=== PATIENT | female | born 1940 | race Caucasian/White ===

== ENCOUNTER 2018-02-22 04:37 | Emergency (ER) | payer MEDICARE, SELFPAY ==
--- NOTE | 2018-02-22 04:48 | DI.RAD.S_ITS ---
PROCEDURE: XR RIBS RT MIN 3V W CXR 1V INDICATIONS: fall with severe R sided chest pain, on eliquis TECHNIQUE: 4 views of the right ribs were acquired, along with a single view chest. COMPARISON: [facility], , CHEST 1 VIEW, 05/23/2012, 18:13. FINDINGS: Surgical changes and devices: A device projects over the mid left lung. Bones and chest wall: No fractures or dislocations. No suspicious bony lesions. Overlying soft tissues appear unremarkable. Lateral curvature of the spine and discogenic changes. Lungs and pleura: No pleural effusions or pneumothorax. Lungs appear clear. Mediastinum: Mediastinal contours appear normal. Heart size is normal. IMPRESSION: No acute cardiopulmonary disease. No rib fracture identified. Dictated by: Stan Christianson M.D. on 02/22/2018 at 8:00 Approved by: Stan Christianson M.D. on 02/22/2018 at 8:03
[2018-02-22 04:50] VITALS: BP 135/79; PULSE 82; RESP 20; TEMP 36.4; O2SAT 96; BMI 27.4
[2018-02-22 05:10] LABS: Add Manual Diff / Slide Review NO; Basophils Percent Auto 0.4 % (0-2); Eosinophils Percent Auto 1.8 % (2-4); Hematocrit 39.9 % (36-46); Hemoglobin 13.3 g/dL (12.0-16.0); Lymphocytes Percent Auto 13.6 % (25-40); Mean Corpuscular HGB Conc 33.4 % (30-36); Mean Corpuscular Hemoglobin 29.2 PG (26-34); Mean Corpuscular Volume 87.5 fL (80-100); Monocytes Percent Auto 8.2 % (3-14); Neutrophils Absolute Auto 6800 /uL (3000-5900); Platelet Count 236 X10^3/uL (150-400); Red Blood Cell Count 4.56 X10^6/uL (4.0-5.2); Red Cell Distribution Width 13.9 % (11.6-14.8); White Blood Cell Count 8.9 X10^3/uL (4.5-11.0)
[2018-02-22 05:17] LABS: BUN Creatinine Ratio 23.3 (6-22); Blood Urea Nitrogen 21 mg/dL (7-17); Calcium 9.2 mg/dL (8.4-10.2); Carbon Dioxide 27 mmol/L (22-32); Chloride 101 mmol/L (98-107); Estimated Glomerular Filt Rate > 60.0 mL/min (>60); Glucose 111 mg/dL (80-110); HEMOLYSIS < 15 (0-50); Sodium 140 mmol/L (137-145)
--- NOTE | 2018-02-22 05:48 | ED.FALL ---
HPI - Fall General Chief Complaint: Fall Stated Complaint: hard to breath, pain back/chest fall 2 days ago Time Seen by Provider: 02/22/18 04:40 Source: patient and family Mode of arrival: ambulatory Limitations: no limitations History of Present Illness HPI Narrative: 77-year-old daily smoker presents to the emergency department with her sister and a chief complaint of some right lateral rib pain after a fall. morning the patient was at home when she tripped over her dog and landed on her right side on the ground. She denies hitting her head and has no head, neck or back pain. 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 She denies any shortness of breath nor cough or hemoptysis. She is not dizzy nor weak or lightheaded. Her pain is worse with motion and improves with rest. She takes Eliquis for AFib. complaint: fall Onset (ago): day(s) Fall from: standing Fall witnessed: no Place fall occurred: home Loss of consciousness: none Prolonged down time: no Symptoms prior to fall: none Context: tripped/slipped Location of injury: chest Severity: moderate Quality: sharp Associated symptoms (after fall): chest pain Related Data Home Medications Medication Instructions Recorded Confirmed lansoprazole 15 mg PO QDAY #0 08/07/16 magnesium oxide #0 08/30/16 potassium chloride 8 meq PO QDAY #0 08/30/16 Previous Rx's Medication Instructions Recorded apixaban [Eliquis] 5 mg PO BID #180 tab 10/30/16 diltiazem HCl 360 mg PO QDAY #90 cap 02/05/17 hydrocodone-acetaminophen 1 tab PO Q4-6H PRN #14 tab 02/22/18 Allergies Allergy/AdvReac Type Severity Reaction Status Date / Time Penicillins Allergy Mild RASH Verified 02/22/18 04:54 ciprofloxacin AdvReac Mild FEVER Unverified 08/06/17 12:50 hydromorphone AdvReac Mild VOMITING Unverified 08/06/17 12:50 warfarin AdvReac Mild FEVER Verified 02/22/18 04:54 Declines blood Transfusion AdvReac Unknown Worship Uncoded 08/06/17 12:50 Grounds Review of Systems Review of Systems All systems reviewed & are unremarkable except as noted in HPI and below Constitutional Denies chills, Denies fever(s), Denies lethargy and Denies weakness Eyes Denies change in vision, Denies eye discharge, Denies irritation and Denies loss of vision ENT Ears, Nose, Mouth, and Throat: Denies change in voice, Denies neck pain and Denies sore throat Cardiovascular Reports chest pain, Denies irregular heart rhythm, Denies lightheadedness, Denies palpitations, Denies dyspnea, Denies dyspnea on exertion and Denies orthopnea Respiratory Denies cough, Reports pain on inspiration, Denies dyspnea, Denies dyspnea on exertion and Denies wheezing Gastrointestinal Gastrointestinal: Denies abdominal pain, Denies change in bowel habits, Denies diarrhea, Denies nausea and Denies vomiting Genitourinary Denies hematuria, Denies flank pain, Denies urinary incontinence and Denies urinary urgency Musculoskeletal Denies neck pain Integumentary/Breasts Denies pruritus, Denies erythema, Denies rash and Denies wounds Neurologic Denies confusion, Denies loss of vision and Denies weakness Psychiatric Denies anxiety, Denies confusion, Denies depression, Denies homicidal ideation and Denies suicidal ideation Endocrine Denies palpitations Hematologic/Lymphatic Denies easy bruising Allergic/Immunologic Denies wheezing Exam Narrative Exam Narrative: GENERAL: This is a well-nourished, well-developed patient, in mild distress. HEAD: Atraumatic. Normocephalic. No temporal or scalp tenderness. EYES: Pupils equal round and reactive. Extraocular motions intact. No scleral icterus. No injection or drainage. ENT: Nose without bleeding, purulent drainage or septal hematoma. Throat without erythema, tonsillar hypertrophy or exudate. Uvula midline. Airway patent. NECK: Trachea midline. No JVD or lymphadenopathy. Supple, nontender, no meningeal signs. CARDIOVASCULAR: Regular rate and rhythm without murmurs, gallops, or rubs. RESPIRATORY: Clear to auscultation. Breath sounds equal bilaterally. No wheezes, rales, or rhonchi. Sharp pain in the right posterior ribs mid thoracic region and in the corresponding location on her chest at the right lateral edge of her sternum GASTROINTESTINAL: Abdomen soft, non-tender, nondistended. No hepato-splenomegaly, or palpable masses. No guarding. EXTREMITIES: No clubbing, cyanosis, or edema. No joint tenderness, effusion, or edema noted. Patient has full range of motion of the right upper extremity but at the extremes of the range of motion she feels pain at the tender spot in her back and anterior chest. BACK: Nontender without deformity or crepitance. No flank tenderness. NEURO: AOx3. SKIN: No rash or erythema. Initial Vital Signs Initial Vital Signs: Vital Signs Temperature 97.6 F 02/22/18 04:50 Pulse Rate 82 02/22/18 04:50 Respiratory Rate 20 02/22/18 04:50 Blood Pressure 135/79 02/22/18 04:50 Pulse Oximetry 96 02/22/18 04:50 [facility] Surgical History History of cataract removal with insertion of prosthetic lens Social History Smoking Status: Current every day smoker Procedures Orthopedic Splinting/Casting Injury #1: Side: right Upper Extremity Injury Location: shoulder Upper Extremity Immobilizer: sling/shoulder immobilizer Additional Comments: Though the patient's shoulder is not injured we discussed limiting range of motion at her shoulder which helps with her chest and back pain, additionally this will serve as a reminder that she has an injury so she does not over do it, which she admittedly regularly would do Course Orders Ordered: Discontinued Medications Hydrocodone Bitart/Acetaminophen (Vicodin Prepack) 1 bottle MISC SEEINSTR ONE Stop: 02/22/18 05:45 Last Admin: 02/22/18 05:50 Dose: 1 bottle Vital Signs - 8 hr 02/22/18 04:50 Temperature 97.6 F Pulse Rate 82 Respiratory Rate 20 Blood Pressure 135/79 Pulse Oximetry 96 MDM - Fall Medical Records Attestation: I reviewed the patient's medical records. Lab Data Attestation: I reviewed the patient's lab results. Result diagrams: 02/22/18 04:57 02/22/18 04:57 Lab Results 02/22/18 02/22/18 Range/Units 04:57 04:57 WBC 8.9 (4.5-11.0) X10^3/uL RBC 4.56 (4.0-5.2) X10^6/uL Hgb 13.3 (12.0-16.0) g/dL Hct 39.9 (36-46) % MCV 87.5 (80-100) fL MCH 29.2 (26-34) PG MCHC 33.4 (30-36) % RDW 13.9 (11.6-14.8) % Plt Count 236 (150-400) X10^3/uL Neut % (Auto) 76.0 H (50-75) % Lymph % (Auto) 13.6 L (25-40) % Ripley % (Auto) 8.2 (3-14) % Eos % (Auto) 1.8 L (2-4) % Baso % (Auto) 0.4 (0-2) % Neut # (Auto) 6800 H (8972-0056) /uL Sodium 140 (137-145) mmol/L Potassium 4.0 (3.4-5.1) mmol/L Chloride 101 (98-107) mmol/L Carbon Dioxide 27 (22-32) mmol/L BUN 21 H (7-17) mg/dL Creatinine 0.90 (0.52-1.04) mg/dL Estimated GFR > 60.0 (>60) mL/min BUN/Creatinine Ratio 23.3 H (6-22) Glucose 111 H (80-110) mg/dL Calcium 9.2 (8.4-10.2) mg/dL Imaging Data Chest x-ray: Attestation: I personally reviewed and interpreted this imaging study as follows: My impression: Posterior lateral minimally displaced rib fracture, no pneumo MDM Narrative Medical decision making narrative: I had a lengthy discussion with this patient and her sister at the bedside. She has stable vital signs and sharp reproducible pain on exam and with deep inspiration. The patient is on Eliquis and we discussed the risk of hematoma after a fall. Given stable vital signs and blood work patient refused CAT scan at this point time despite a discussion of risks and benefits. I support this decision and she has a firm understanding of return precautions which she understands and is able to verbalize back to me which include increasing pain, shortness of breath, hemoptysis, dizziness, weakness, lightheadedness. Her sister, whom she lives with his a nurse and supports this decision. Discharge Plan Departure Patient Disposition: Home Clinical Impression: Closed rib fracture Discharge Date/Time: 02/22/18 06:10 Interventions: ED Discharge Assessment Last Done: 02/22/18 06:09 Instructions: DI for Rib Fracture Activity Restrictions/Additional Instructions: *You have been diagnosed with [ right-sided rib fracture] *What to do: *Take medications as directed *Follow up with your primary care provider in 2-3 days, call for an appointment. Let them know you were seen in the Emergency Department and that we ask that you be seen in follow up *Return to ER if you should have any new, worsening or concerning symptoms, such as [increasing pain, shortness of breath, bloody sputum, dizziness, weakness, lightheadedness, or other bothersome symptoms ] Prescriptions: New hydrocodone-acetaminophen 5-325 mg tablet 1 tab PO Q4-6H PRN (Reason: pain) Qty: 14 RF: 0 No Action lansoprazole 15 MG capsule,delayed release(DR/EC) 15 mg PO QDAY Qty: 0 RF: 0 magnesium oxide 400 MG capsule Qty: 0 RF: 0 potassium chloride 8 MEQ capsule, extended release 8 meq PO QDAY Qty: 0 RF: 0 apixaban [Eliquis] 5 MG tablet 5 mg PO BID Qty: 180 RF: 3 diltiazem HCl 360 MG capsule,extended release 24 hr 360 mg PO QDAY Qty: 90 RF: 3 Referrals: René Boyer MD [Primary Care Provider] -
[2018-02-22] MEDS: HYDROCODONE/ACET 5/325 PREPACK 1 BOTTLE MISC (05:50)
[2018-02-22 06:09] VITALS: BP 135/94; PULSE 71; RESP 16; O2SAT 94
== END 2018-02-22 06:10 | disposition home or self-care (01) ==
PROVIDERS: Emergency Provider Emergency Medicine; Family Provider Family Medicine; PCP Family Medicine
DX: S22.31XA Fracture of one rib, right side, initial encounter for closed fracture (principal); W01.0XXA Fall on same level from slipping, tripping and stumbling without subsequent striking against object, initial encounter
CPT/HCPCS: 36591; 71101; 80048; 85025; 93005; 93010; 99282; 99285

== ENCOUNTER 2018-03-04 07:59 | Day surgery (SDC) | payer MEDICARE, SELFPAY ==
--- NOTE | 2018-03-02 09:09 | P.OP_ITS ---
Operative Date/Time/Diagnoses Date of procedure: 03/04/18 Time of procedure: 09:00 Procedure & Clinicians Procedure: Date of service: March 04, 2018 Preoperative diagnoses: 1. Right nuclear sclerotic Cataract 2. Recent fall without rib fracture,stable. 3. Atrial fibrillation with use of Eliquis Postoperative diagnoses: 1. Cataract removed with phacoemulsification and placement of posterior chamber intraocular lens implant. Procedure: Phacoemulsification with posterior chamber intraocular lens implant Surgeon: Rody Pink MD Complications:none Specimen: None Implant:ZCBOO+19.0 Blood loss: None Anesthesia: Retrobulbar with monitored standby Anesthesiologist: Portia Cameron M.D. Description of procedure: Patient is a female year old with decreased vision due to cataract which is affecting activities of daily living. She wants surgery to improve vision. 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 She was taken to the operating room and given IV sedation. A retrobulbar block insert consisting of 6 cc of 2% xylocaine without epinephrine mixed half and half with 0.5% Marcaine with 1 cc of hyaluronidase added is placed between the medial and lateral 1/3 of the inferior orbital rim. Lid akinesia is obtain with 1% xylocaine with epinephrine infiltrated along the lid margin. The eye is manually massaged for 30 sec, prepped using Betadine solution, and draped in the usual sterile fashion. Temporal approach was made, a 1 mm side-port incision was made at the 7:30 position. Phenylephrine 1.5% mixed with 1% xylocaine 0.2 cc was placed into the anterior chamber. Viscoat followed by Tanika was then placed. A 2.6 mm clear incision with a 2.6 mm blade was placed at the 170 degree meridian. A 360 degree capsulorrhexis style capsulotomy was then performed with a cystitome needle on a Healon. Hydrodelineation and hydrodissection were performed. The phacoemulsification unit is introduced, and sculpting notice used to groove the central lens. It is then removed in chopping mode. Epi nucleus is removed with epinuclear mode and irrigation aspiration was used to remove the peripheral cortex. The posterior capsule is polished. The intraocular lens is selected, inspected, power confirmed, and placed in the posterior chamber. The pupil was constricted. The wound was stromally hydrated and tested for leaks, there was none and it was left sutureless. Vigamox 0.1 cc was placed into the anterior chamber. Kenalog 0.2 cc was placed in the superior subconjunctival space. A drop of antibiotic and was placed and the eye was patched and shielded. The patient was stable and returned to the recovery room in excellent condition. Dictated by: Rody Pink MD Copy to: [facility] Same procedure as scheduled: Yes
--- NOTE | 2018-03-02 09:10 | PM.PREOP ---
Pre-operative Note Interval Note Pre-op Check: Yes History & Physical Reviewed by Physician Changes: No
[2018-03-04] MEDS: PROPARACAINE 0.5% OPHTH SOL 2 DROPS EYE-OP (08:10)
[2018-03-04] MEDS: CATARACT EYE COMPOUND (10 DROPS/SYRINGE) 3 DROPS EYE-OP (08:29)
[2018-03-04 08:33] VITALS: BP 154/91; PULSE 90; RESP 16; TEMP 36.2; O2SAT 99
[2018-03-04] MEDS: BALANCED SALT IRRIG SOLN NO.2 15 ML IRRIG.SOLN IRR (09:10)
[2018-03-04] MEDS: CARBACHOL 1.5 ML VIAL INJ (09:11)
[2018-03-04] MEDS: HYALURONATE SODIUM 10 MG/ML SYRINGE INJ (09:12)
[2018-03-04] MEDS: CHONDROIDTIN/SOD HYALURONATE 1.05 ML SYRINGE INTRAOCULA (09:12)
[2018-03-04] MEDS: MOXIFLOXACIN OPHTH DROPS 3 ML BOTTLE 2 DROPS INJ (09:13)
[2018-03-04] MEDS: LIDOCAINE 1% W/EPI INJ 20 ML INJ (09:13)
[2018-03-04] MEDS: OFLOXACIN 0.3% OPHTH 5 ML 2 DROPS EYE-RIGHT (09:14)
[2018-03-04] MEDS: NEOMYCIN/POLY/DEX OPHTH OINT 1 APPLIC EYE-RIGHT (09:14)
[2018-03-04] MEDS: TRIAMCINOLONE 50 MG/5 ML VIAL INJ (09:15)
[2018-03-04] MEDS: PHENYLEPHRINE/LIDOCAINE VIAL (OR) 0.2 ML EYE-OP (09:15)
[2018-03-04] MEDS: LIDOCAINE 2% 4 ML, BUPIVACAINE 0.5% (PF) 4 ML, HYALURONIDASE 150 UNIT INJ (09:16)
[2018-03-04] MEDS: BALANCED SALT IRRIG SOLN NO.2 500 ML, EPINEPHrine 1 MG IRR (09:17)
[2018-03-04 09:38] VITALS: BP 153/95; PULSE 76; RESP 16; TEMP 36.2; O2SAT 96
== END 2018-03-04 09:53 | disposition home or self-care (01) ==
LOC: OR 08:01
PROVIDERS: Family Provider Family Medicine; PCP Family Medicine; Visit Provider Ophthalmology
DX: H25.11 Age-related nuclear cataract, right eye (principal); I48.91 Unspecified atrial fibrillation
CPT/HCPCS: J0171; J2250; J2704; J3010; J3301; J3470

== ENCOUNTER → 2018-08-20 09:46 | Outpatient (CLI) | payer MEDICARE, SELFPAY ==
[2018-08-20 10:26] LABS: Add Manual Diff / Slide Review NO; Basophils Absolute Auto 0 /uL (0-100); Basophils Percent Auto 0.4 % (0-2); Eosinophils Absolute Auto 200 /uL (0-450); Eosinophils Percent Auto 2.8 % (2-4); Hematocrit 40.5 % (36-46); Hemoglobin 13.6 g/dL (12.0-16.0); Lymphocytes Absolute Auto 900 /uL (1100-4500); Lymphocytes Percent Auto 12.1 % (25-40); Mean Corpuscular HGB Conc 33.6 % (30-36); Mean Corpuscular Hemoglobin 29.2 PG (26-34); Mean Corpuscular Volume 86.8 fL (80-100); Monocytes Absolute Auto 700 /uL (0-900); Monocytes Percent Auto 9.2 % (3-14); Neutrophils Absolute Auto 5700 /uL (1500-7000); Neutrophils Percent Auto 75.5 % (50-75); Platelet Count 241 X10^3/uL (150-400); Red Blood Cell Count 4.66 X10^6/uL (4.0-5.2); Red Cell Distribution Width 13.5 % (11.6-14.8); White Blood Cell Count 7.5 X10^3/uL (4.5-11.0)
[2018-08-20 11:03] LABS: Alanine Aminotransferase 20 IU/L (9-52); Albumin 4.3 g/dL (3.5-5.0); Albumin Globulin Ratio 1.6 (1.0-2.8); Alkaline Phosphatase 66 U/L (38-126); Aspartate Aminotransferase 25 IU/L (14-36); BUN Creatinine Ratio 25.6 (6-22); Bilirubin Total 0.5 mg/dL (0.2-1.3); Blood Urea Nitrogen 23 mg/dL (7-17); Calcium 9.5 mg/dL (8.4-10.2); Carbon Dioxide 30 mmol/L (22-32); Chloride 101 mmol/L (98-107); Estimated Glomerular Filt Rate > 60.0 mL/min (>60); Globulin 2.7 g/dL (1.7-4.1); Glucose 96 mg/dL (80-110); HEMOLYSIS < 15 (0-50); Potassium 4.1 mmol/L (3.4-5.1); Sodium 140 mmol/L (137-145)
[2018-08-20 11:31] LABS: Free T4, Direct Thyroxine 1.21 ng/dL (0.78-2.19)
[2018-08-20 11:45] LABS: Thyroid Stimulating Hormone 2.18 uIU/mL (0.47-4.68)
== END ==
PROVIDERS: Family Provider Family Medicine; PCP Family Medicine; Visit Provider Internal Medicine Cardiovascular Disease
DX: I48.91 Unspecified atrial fibrillation (principal); I48.2 Chronic atrial fibrillation
CPT/HCPCS: 36415; 80053; 84439; 84443; 85025

== ENCOUNTER → 2019-05-04 09:45 | Outpatient (CLI) | payer MEDICARE, SELFPAY ==
[2019-05-04 10:55] LABS: B Type Natriuretic Peptide 134 (<100)
[2019-05-04 11:08] LABS: Blood Urea Nitrogen 24 mg/dL (7-17); Calcium 9.9 mg/dL (8.4-10.2); Carbon Dioxide 31 mmol/L (22-32); Chloride 98 mmol/L (98-107); Estimated Glomerular Filt Rate 53.3 mL/min (>60); Glucose 93 mg/dL (80-110); HEMOLYSIS < 15 (0-50); Magnesium 2.1 mg/dL (1.6-2.3); Potassium 4.2 mmol/L (3.4-5.1); Sodium 138 mmol/L (137-145)
== END ==
PROVIDERS: Family Provider Family Medicine; PCP Family Medicine; Visit Provider Internal Medicine Cardiovascular Disease
DX: R06.02 Shortness of breath (principal); I48.21 Permanent atrial fibrillation; I10 Essential (primary) hypertension
CPT/HCPCS: 36415; 80048; 83735; 83880

== ENCOUNTER → 2019-10-21 13:48 | Outpatient (CLI) | payer MEDICARE, SELFPAY ==
--- NOTE | 2019-10-22 13:15 | DI.ECHO.S_ITS ---
Echocardiogram Report + + :Name: CLARA SUN Study Date: 10/21/2019 Height: 64 in : :[facility] Exam Location: [facility] Weight: 157 lb : : Gender: Female BSA: 1.8 m2 : :: 1940 Age: 78 yrs BP: 143/93 mmHg: :Reason For Study: SOB : : Performed By: Lindsay Page : :Referring: MORAIMA INTERIANO : + + Interpretation Summary The left ventricle is normal in size. Left ventricular ejection fraction is estimated to be 70 +/- 5%. The right ventricle is mildly dilated. The right ventricular systolic function is normal. There is mild to moderate mitral regurgitation. Compared to the prior echo study, there has been no change in the severity of mitral regurgitation. There is mild tricuspid regurgitation. Compared to the prior echo exam, there has been a decrease in TR severity. The ascending aorta is mild-moderately enlarged. There has been no significant change since the previous study. Procedure: A two-dimensional transthoracic echocardiogram with color flow and Doppler was performed. The study quality was technically adequate. Comparison is made with the echocardiogram of 08/16/2016. The heart rate ranged between 75-90 bpm during the study. The patient was in atrial fibrillation with controlled ventricular rate during the exam. Left Ventricle: The left ventricle is normal in size. Left ventricular wall thickness is mildly increased. Proximal septal thickening is noted. There is no echo evidence for significant left ventricular outflow tract obstruction. There is no thrombus. The left ventricle is mildly hyperdynamic. Left ventricular ejection fraction is estimated to be 70 +/- 5%. There are no focal wall motion abnormalities. E/E' med: 14.4. Right Ventricle: The right ventricle is mildly dilated. The right ventricular systolic function is normal. Atria: Both atria are severely dilated. Both atria have mildly increased in size since the prior echo exam. The right atrium has mildly increased in size since the prior echo exam. There is no Doppler evidence for an interatrial shunt. Mitral Valve: The mitral valve leaflets appear mildly thickened, but open well. There is mild mitral annular calcification. There is mild to moderate mitral regurgitation. Compared to the prior echo study, there has been no change in the severity of mitral regurgitation. Aortic Valve: The aortic valve is trileaflet. The aortic valve is slightly calcified. There is no aortic valve stenosis. There is trace aortic regurgitation. Tricuspid Valve: The tricuspid valve is normal. There is mild tricuspid regurgitation. The right ventricular systolic pressure is estimated to be at least 32 mmHg based on an estimated right atrial pressure of 3 mm Hg. Compared to the prior echo exam, there has been a decrease in TR severity. Pulmonic Valve: The pulmonic valve is not well seen, but is grossly normal. There is trace pulmonic regurgitation. Great Vessels: The aortic root is normal size. The ascending aorta is mildmoderately enlarged. There has been no significant change since the previous study. The pulmonary artery is normal size. The IVC is of normal diameter and collapses greater than 50% with a sniff. This suggests a low right atrial pressure of 3 mm Hg. Pericardium/ Pleura There is no pericardial effusion. There is no pleural effusion. MMode/2D Measurements & Calculations LVIDd: 4.0 cm LVOT diam: 2.0 cm LVIDs: 1.8 cm Ao root diam: 3.4 cm FS: 54.4 % asc Aorta Diam: 4.2 cm EPSS: 0.10 cm IVSd: 1.1 cm LVPWd: 1.0 cm LV metzger. diameter/BSA (cm/m^2): 2.3 LV sys. diameter/BSA (cm/m^2): 1.0 LA A2 area: 36.1 cm2 RA long axis: 6.9 cm LA A4 area: 33.9 cm2 RA area: 28.7 cm2 LA length (vol): 6.7 cm RA vol: 101.6 ml LA vol: 154.6 ml RA : 57.7 ml/m2 LA vol index: 87.7 ml/m2 IVC diam: 1.4 cm RVD1 (basal): 4.3 cm RVD2 (mid): 3.8 cm Doppler Measurements & Calculations Ao V2 max: 202.7 cm/sec LVOT Max Alejandro: 127.5 cm/sec Ao V2 mean: 136.2 cm/sec LV V1 max P.5 mmHg Ao max P.5 mmHg LV V1 VTI: 20.9 cm Ao mean P.3 mmHg DANAE(I,D): 1.8 cm2 Ao V2 VTI: 38.5 cm DANAE(V,D): 2.1 cm2 sev ratio: 0.54 DANAE indexed to BSA (cm^2/m^2): 1.0 MV E max alejandro: 131.3 cm/sec TR max alejandro: 269.9 cm/sec MV A max alejandro: 30.7 cm/sec TR max P.2 mmHg MV E/A: 4.3 PA V2 max: 93.1 cm/sec Med Peak E' Alejandro: 9.1 cm/sec PA V2 mean: 64.9 cm/sec E/E' med: 14.4 PA mean P.8 mmHg Lat Peak E' Alejandro: 13.4 cm/sec PA Accel Time: 0.07 sec E/E' lat: 9.8 E/e' average: 12.1 MV P1/2t: 46.3 msec MV P1/2t max alejandro: 125.2 cm/sec SV(LVOT): 68.2 ml MVA(P1/2t): 4.7 cm2 Reading Physician:03:48 PM
== END ==
PROVIDERS: Family Provider Family Medicine; PCP Family Medicine; Referring Provider Internal Medicine Cardiovascular Disease; Visit Provider Internal Medicine Cardiovascular Disease
DX: I08.1 Rheumatic disorders of both mitral and tricuspid valves (principal); I77.89 Other specified disorders of arteries and arterioles; R06.02 Shortness of breath; I48.21 Permanent atrial fibrillation
CPT/HCPCS: 93306

== ENCOUNTER → 2019-11-17 08:50 | Outpatient (CLI) | payer MEDICARE, SELFPAY ==
[2019-11-17 10:43] LABS: BUN Creatinine Ratio 20.4 (6-22); Blood Urea Nitrogen 19 mg/dL (7-17); Calcium 9.8 mg/dL (8.4-10.2); Carbon Dioxide 28 mmol/L (22-32); Chloride 102 mmol/L (98-107); Cholesterol 179 mg/dL (140-199); Glucose 94 mg/dL (80-110); HDL Cholesterol 52 mg/dL (40-60); HEMOLYSIS < 15 (0-50); LDL Cholesterol Calculated 101 mg/dL (<100); Magnesium 2.3 mg/dL (1.6-2.3); Potassium 4.1 mmol/L (3.4-5.1); Sodium 138 mmol/L (137-145); Triglycerides 130 mg/dL (35-150)
[2019-11-17 10:50] LABS: NT-proBNP (BNP-Adult 18+) 628 pg/mL (<450)
== END ==
PROVIDERS: Family Provider Family Medicine; PCP Family Medicine; Referring Provider Internal Medicine Cardiovascular Disease; Visit Provider Internal Medicine Cardiovascular Disease
DX: I48.21 Permanent atrial fibrillation (principal); I10 Essential (primary) hypertension; R06.02 Shortness of breath
CPT/HCPCS: 36415; 80048; 80061; 83735; 83880

== ENCOUNTER → 2020-01-05 12:59 | Outpatient (CLI) | payer MEDICARE, SELFPAY ==
[2020-01-05 14:20] LABS: Blood Urea Nitrogen 23 mg/dL (7-17); Calcium 9.8 mg/dL (8.4-10.2); Carbon Dioxide 31 mmol/L (22-32); Chloride 101 mmol/L (98-107); Estimated Glomerular Filt Rate 53.2 mL/min (>60); Glucose 106 mg/dL (80-110); HEMOLYSIS < 15 (0-50); Potassium 4.9 mmol/L (3.4-5.1); Sodium 138 mmol/L (137-145)
== END ==
PROVIDERS: Family Provider Family Medicine; PCP Family Medicine; Referring Provider Internal Medicine Cardiovascular Disease; Visit Provider Internal Medicine Cardiovascular Disease
DX: I48.21 Permanent atrial fibrillation (principal); G47.33 Obstructive sleep apnea (adult) (pediatric); R53.83 Other fatigue; R06.83 Snoring
CPT/HCPCS: 36415; 80048; 99213

== ENCOUNTER 2020-04-07 18:20 | Inpatient (IN) | payer MEDICARE, SELFPAY ==
--- NOTE | 2020-04-07 | DI.RAD.S_ITS ---
PROCEDURE: XR CHEST 1V INDICATIONS: FALL TECHNIQUE: One view of the chest was acquired. COMPARISON: [facility], , CHEST 1 VIEW, 05/23/2012, 18:13. FINDINGS: Surgical changes and devices: None. Lungs and pleura: Lungs are clear. Minimal left basilar scarring. No pleural effusions or pneumothorax. Mediastinum: Mediastinal contours appear normal. Heart size is normal. Bones and chest wall: No suspicious bony lesions. Overlying soft tissues appear unremarkable. IMPRESSION: No evidence acute pulmonary process. Dictated by: Brad Delgado M.D. on 04/07/2020 at 19:32 Approved by: Brad Delgado M.D. on 04/07/2020 at 19:32
[2020-04-07 18:30] VITALS: BP 153/78; PULSE 84; RESP 18; TEMP 36.7; O2SAT 93; BMI 27.4
--- NOTE | 2020-04-07 18:39 | DI.RAD.S_ITS ---
PROCEDURE: XR FEMUR LT MIN 2V INDICATIONS: fall/pain TECHNIQUE: 4 views of the femur were acquired. COMPARISON: [facility], CR, XR HIP W PEL IF DONE LT 2V, 04/07/2020, 19:10. FINDINGS: Bones: There is a moderately impacted subcapital fracture of the left femoral neck. No evidence of distal femoral fracture. Soft tissues: No suspicious soft tissue calcifications or masses. IMPRESSION: 1. Impacted left femoral neck fracture. Dictated by: Eduardo Hermosillo M.D. on 04/07/2020 at 19:40 Approved by: Eduardo Hermosillo M.D. on 04/07/2020 at 19:41
--- NOTE | 2020-04-07 18:39 | DI.RAD.S_ITS ---
PROCEDURE: XR HIP W PEL IF DONE LT 2V INDICATIONS: fall/pain TECHNIQUE: AP pelvis with lateral view of the left hip. COMPARISON: [facility], , HIP 2V RIGHT, 05/24/2012, 11:09. FINDINGS: Bones: There is a moderately impacted subcapital left femoral neck fracture. Pelvic ring appears intact. A right hip prosthesis is redemonstrated. No suspicious bony lesions. Soft tissues: The visualized bowel gas pattern is normal. No suspicious soft tissue calcifications. IMPRESSION: 1. Impacted left femoral neck fracture Dictated by: Eduardo Hermosillo M.D. on 04/07/2020 at 19:43 Approved by: Eduardo Hermosillo M.D. on 04/07/2020 at 19:44
--- NOTE | 2020-04-07 18:43 | ED_ITS ---
HPI - Extremity Injury (Lower) General Chief Complaint: Extremity Injury, Lower Stated Complaint: at home fall Time Seen by Provider: 04/07/20 18:29 Source: patient and EMS Mode of arrival: EMS Limitations: no limitations History of Present Illness HPI Narrative: Patient complains of left hip pain. Was walking down her driveway and slipped between the edge of the grass and driveway. Landed on her left hip and rolled down. Denies denies any any other injuries. No head or neck injury. No other extremity pain or injury. No trunk abdomen back or chest pain or injury. Remains awake. No loss of consciousness. Patient is on Eliquis for atrial fibrillation. Patient had right hip surgery due to fracture and fall 8 years ago here. Has been doing well. Is not allergic to morphine. Patient states has had that in the past without any difficulty. Last meal 2 hours ago Related Data Home Medications Medication Instructions Recorded Confirmed lansoprazole 15 mg PO QDAY #0 08/07/16 04/07/20 [id number] 1 tab PO DAILY 04/07/20 04/07/20 [Calcium Citrate + D with Mag] cranberry conc-ascorbic acid cap PO PRN PRN 04/07/20 [Cranberry Plus Vitamin C] valsartan 80 mg PO DAILY 04/07/20 04/07/20 Previous Rx's Medication Instructions Recorded Eliquis 5 mg PO BID #180 tab 10/30/16 diltiazem HCl 360 mg PO QDAY #90 cap 02/05/17 Allergies Allergy/AdvReac Type Severity Reaction Status Date / Time Penicillins Allergy Mild RASH Verified 01/05/20 20:59 ciprofloxacin AdvReac Mild FEVER Verified 04/07/20 22:00 hydromorphone AdvReac Mild VOMITING Verified 04/07/20 22:00 warfarin AdvReac Mild FEVER Verified 01/05/20 20:59 Declines blood Transfusion AdvReac Unknown Mandaen Uncoded 01/05/20 20:59 Grounds Review of Systems Review of Systems Narrative: GENERAL: Denies chills, fatigue, malaise, fever, sweats. HEENT: Denies sinus pain, ear pain, sore throat, difficulty swallowing RESPIRATORY: Denies dyspnea, cough CARDIOVASCULAR: Denies chest pain, palpitations, edema, GASTROINTESTINAL: Denies nausea, vomiting, abdominal pain, diarrhea, constipation, melena. : Denies dysuria, frequency, hematuria MUSCULOSKELETAL: denies muscle or bony pain SKIN: Denies rash, skin lesions NEUROLOGIC: Denies weakness, headache, numbness, change in speech, confusion PSYCHIATRIC: No SI or HI or hallucinations ROS Unobtainable: All systems reviewed & are unremarkable except as noted in HPI and below Patient History Medical History Fatigue GERD (gastroesophageal reflux disease) Obstructive sleep apnea syndrome (~10/2019) Snoring Surgical History History of cataract removal with insertion of prosthetic lens History of right hip replacement Family History Mother Restless legs syndrome (RLS) Hypertension Heart disease Father Hypertension Heart disease Family/Other Restless legs syndrome (RLS) Obesity Hypertension Family/Other Snoring Obstructive sleep apnea Depression Alcohol abuse Substance abuse Anxiety Bipolar disorder Family/Other Obesity Social History marital status: number of children: 5 household members: family lives independently: Yes caregiver/support person: No housing: house Smoking Status: Never smoker alcohol intake: current substance use type: does not use Smoking Status: Never smoker alcohol intake frequency: a few times a month Substance Use Type: does not use Exam Narrative Exam Narrative: GENERAL: patient appears stated age. Well-nourished, well- developed patient, in no distress, not toxic not dyspneic HEAD: Normocephalic. EYES: Pupils equal round and reactive. No scleral icterus. No injection no discharge ENT: Mucous membranes moist. No drooling no tongue elevation no trismus no malocclusion NECK: Trachea midline. Non tender CARDIOVASCULAR: Regular rate and rhythm without murmurs, gallops, or rubs. RESPIRATORY: Clear to auscultation. Breath sounds equal bilaterally. No wheezes, rales, or rhonchi. GASTROINTESTINAL: Abdomen soft, non-tender, nondistended. EXTREMITIES: Examination left lower extremity left leg is shortened and externally rotated. Leg is warm soft and pink strong pedal pulse. Foot warm soft and pink. Wiggles toes. Nontender ankle and knee. Point tenderness to the left hip. Limited range of motion due to pain. Examination left wrist shows tenderness to distal radius. Has limited range of motion with pain. Strong airport engineer in radial pulse with light touch intact to fingers and thumb. Skin is intact. Remaining extremities nontender. No gross deformities of the other extremities. BACK: Nontender without deformity or crepitance. No flank tenderness. NEURO: AOx4. SKIN: Warm and dry PSYCH: Not anxious, is cooperative Initial Vital Signs Initial Vital Signs: Vital Signs Temperature 98.0 F 04/07/20 18:30 Pulse Rate 84 04/07/20 18:30 Respiratory Rate 18 04/07/20 18:30 Blood Pressure 153/78 H 04/07/20 18:30 Pulse Oximetry 93 04/07/20 18:30 Procedures Orthopedic Splinting/Casting Injury #1: Side: left Upper Extremity Injury Location: wrist Upper Extremity Immobilizer: volar splint Post splinting neuro exam: intact Post splinting vascular exam: intact Placed by: Nursing Course Course Course Narrative: Spoke with patient will need admit for surgical repair of the hip and possibly the wrist Decision to Admit Date: 04/07/20 Decision to Admit time: 19:42 Orders Ordered: ED Orders 04/07/20 18:39 XR femur LT min 2V Stat XR hip w pel if done LT 2V Stat 04/07/20 19:08 XR wrist LT min 3V Stat 04/07/20 19:46 Complete Blood Count AUTO DIFF Stat Comprehensive Metabolic Panel Stat Partial Thromboplastin Time Stat Prothrombin Time INR Stat 04/07/20 20:00 COVID19 Stat Acetaminophen (Acetaminophen 325 Mg Tablet) 650 mg PO Q6HR PRN PRN Reason: Fever/Mild Pain (1-3) Diltiazem HCl (Diltiazem Cd 180 Mg Cap) 360 mg PO DAILY [facility] Last Admin: 04/07/20 23:42 Dose: 360 mg Documented by: TARUN Sodium Chloride (Normal Saline 0.45%) 1,000 mls @ 100 mls/hr IV CONT [facility] Last Admin: 04/07/20 23:43 Dose: 100 mls/hr Documented by: TARUN Morphine Sulfate (Morphine 2 Mg/Ml Inj) 2 mg IV Q4HR PRN PRN Reason: Pain, Moderate (4-6) Last Admin: 04/07/20 23:43 Dose: 2 mg Documented by: TARUN Naloxone HCl (Naloxone 0.4 Mg/Ml Vial) 0.2 mg IV Q2MIN PRN PRN Reason: Opiate Reversal Ondansetron HCl (Ondansetron 4 Mg/2 Ml Inj) 4 mg IV Q8HR PRN PRN Reason: Nausea And Vomiting Valsartan (Valsartan 80 Mg Tablet) 80 mg PO DAILY [facility] Discontinued Medications Morphine Sulfate (Morphine 4 Mg/Ml Inj) 4 mg IV NOW ONE Stop: 04/07/20 18:40 Last Admin: 04/07/20 18:51 Dose: 4 mg Documented by: MMINOR Ondansetron HCl (Ondansetron 4 Mg/2 Ml Inj) 4 mg IV NOW ONE Stop: 04/07/20 18:40 Last Admin: 04/07/20 18:51 Dose: 4 mg Documented by: MMINOR Reevaluation(s) Reevaluation #1: Pain is controlled. Reviewed results with patient and she understands Time: 19:42 Consultations Consultation #1: Spoke with Dr. Velez, orthopedics. Reviewed the x-rays. Admit to hospitalist and keep NPO after midnight. No CT scan at this time. Time: 19:42 Consultation #2: Spoke with hospitalistElizabeth, admit inpatient monitored bed Time: 20:10 Vital Signs Vital signs: Vital Signs - 8 hr 04/07/20 18:30 Temperature 98.0 F Pulse Rate 84 Respiratory Rate 18 Blood Pressure 153/78 H Pulse Oximetry 93 MDM - Extremity Injury (Lower) Differential Diagnosis Differential diagnosis: Likely fracture of hip Medical Records Attestation: I reviewed the patient's medical records. Lab Data Attestation: I reviewed the patient's lab results. Result diagrams: 04/07/20 19:46 04/07/20 19:46 Labs: Lab Results 04/07/20 04/07/20 04/07/20 Range/Units 19:46 19:46 19:46 WBC 5.6 (4.5-11.0) X10^3/uL RBC 4.10 (4.0-5.2) X10^6/uL Hgb 11.6 L (12.0-16.0) g/dL Hct 35.7 L (36-46) % MCV 87.0 (80-100) fL MCH 28.3 (26-34) PG MCHC 32.5 (30-36) % RDW 13.8 (11.6-14.8) % Plt Count 221 (150-400) X10^3/uL Neut % (Auto) 72.2 (50-75) % Lymph % (Auto) 10.3 L (25-40) % [place] % (Auto) 14.1 H (3-14) % Eos % (Auto) 2.8 (2-4) % Baso % (Auto) 0.6 (0-2) % Neut # (Auto) 4000 (8922-0606) /uL Lymph # (Auto) 600 L (2653-4898) /uL [place] # (Auto) 800 (0-900) /uL Eos # (Auto) 200 (0-450) /uL Baso # (Auto) 0 (0-100) /uL PT 16.2 H (10.1-12.7) SECONDS INR 1.4 H (0.9-1.3) APTT 49 H (26.4-36.2) SECONDS Sodium 136 L (137-145) mmol/L Potassium 4.2 (3.4-5.1) mmol/L Chloride 103 (98-107) mmol/L Carbon Dioxide 31 (22-32) mmol/L BUN 26 H (7-17) mg/dL Creatinine 0.92 (0.52-1.04) mg/dL Estimated GFR 58.6 L (>60) mL/min BUN/Creatinine Ratio 28.3 H (6-22) Glucose 109 (80-110) mg/dL Calcium 9.2 (8.4-10.2) mg/dL Magnesium (1.6-2.3) mg/dL Total Bilirubin 0.4 (0.2-1.3) mg/dL AST 27 (14-36) IU/L ALT 19 (<35) IU/L Alkaline Phosphatase 61 (38-126) U/L Total Protein 6.8 (6.3-8.2) g/dL Albumin 3.9 (3.5-5.0) g/dL Globulin 2.9 (1.7-4.1) g/dL Albumin/Globulin Ratio 1.3 (1.0-2.8) COVID-19 PCR (Negative) 04/07/20 04/07/20 Range/Units 19:46 20:00 WBC (4.5-11.0) X10^3/uL RBC (4.0-5.2) X10^6/uL Hgb (12.0-16.0) g/dL Hct (36-46) % MCV (80-100) fL MCH (26-34) PG MCHC (30-36) % RDW (11.6-14.8) % Plt Count (150-400) X10^3/uL Neut % (Auto) (50-75) % Lymph % (Auto) (25-40) % [place] % (Auto) (3-14) % Eos % (Auto) (2-4) % Baso % (Auto) (0-2) % Neut # (Auto) (4527-9134) /uL Lymph # (Auto) (5463-7580) /uL [place] # (Auto) (0-900) /uL Eos # (Auto) (0-450) /uL Baso # (Auto) (0-100) /uL PT (10.1-12.7) SECONDS INR (0.9-1.3) APTT (26.4-36.2) SECONDS Sodium (137-145) mmol/L Potassium (3.4-5.1) mmol/L Chloride (98-107) mmol/L Carbon Dioxide (22-32) mmol/L BUN (7-17) mg/dL Creatinine (0.52-1.04) mg/dL Estimated GFR (>60) mL/min BUN/Creatinine Ratio (6-22) Glucose (80-110) mg/dL Calcium (8.4-10.2) mg/dL Magnesium 2.3 (1.6-2.3) mg/dL Total Bilirubin (0.2-1.3) mg/dL AST (14-36) IU/L ALT (<35) IU/L Alkaline Phosphatase (38-126) U/L Total Protein (6.3-8.2) g/dL Albumin (3.5-5.0) g/dL Globulin (1.7-4.1) g/dL Albumin/Globulin Ratio (1.0-2.8) COVID-19 PCR Negative (Negative) Imaging Data Extremity x-ray #1: Radiologist's Impression: [address] [id number] ReportSigned Patient: Rody Rodas LMR#: [id number]: 9Acct:[id number]/Sex: 79 / FDate of Service: 04/07/20Lo: EDAccession Number: [id number] Procedure: XR wrist LT min 3V Ordering Provider: Marcos Spear MD PROCEDURE: XR WRIST LT MIN 3V INDICATIONS: fall, swelling and pain TECHNIQUE: 3 views of the wrist were acquired. COMPARISON: None. FINDINGS: Bones: Nondisplaced comminuted distal radius fracture extending to articular surface. Triquetral fracture seen on lateral view. Question nondisplaced scaphoid fracture. No suspicious bony lesions. Soft tissues: No suspicious soft tissue calcifications. IMPRESSION: 1. Nondisplaced comminuted distal radius fracture extending to articular surface. 2. Triquetral fracture. 3. Question nondisplaced scaphoid waist fracture. Comment: Suggest CT wrist to evaluate scaphoid. Dictated by: Brad Delgado M.D. on 04/07/2020 at 19:29 Approved by: Brad Delgado M.D. on 04/07/2020 at 19:31 Chest x-ray: Radiologist's Impression: [address] [id number] ReportSigned Patient: Rody Rodas LMR#: [id number]: 9Acct:[id number]/Sex: 79 / FDate of Service: 04/07/20Loc: EDAccession Number: [id number] Procedure: XR chest 1V Ordering Provider: Marcos Spear MD PROCEDURE: XR CHEST 1V INDICATIONS: FALL TECHNIQUE: One view of the chest was acquired. COMPARISON: [facility], CHEST 1 VIEW, 05/23/2012, 18:13. FINDINGS: Surgical changes and devices: None. Lungs and pleura: Lungs are clear. Minimal left basilar scarring. No pleural effusions or pneumothorax. Mediastinum: Mediastinal contours appear normal. Heart size is normal. Bones and chest wall: No suspicious bony lesions. Overlying soft tissues appear unremarkable. IMPRESSION: No evidence acute pulmonary process. Dictated by: Brad Delgado M.D. on 04/07/2020 at 19:32 Approved by: Brad Delgaod M.D. on 04/07/2020 at 19:32 Extremity x-ray #2: Radiologist's Impression: [address] [id number] ReportSigned Patient: Rody Rodas LMR#: [id number]: 9Acct:[id number]/Sex: 79 / FDate of Service: 04/07/20Loc: EDAccession Number: [id number] Procedure: XR femur LT min 2V Ordering Provider: Marcos Spear MD PROCEDURE: XR FEMUR LT MIN 2V INDICATIONS: fall/pain TECHNIQUE: 4 views of the femur were acquired. COMPARISON: [facility], CR, XR HIP W PEL IF DONE LT 2V, 04/07/2020, 19:10. FINDINGS: Bones: There is a moderately impacted subcapital fracture of the left femoral neck. No evidence of distal femoral fracture. Soft tissues: No suspicious soft tissue calcifications or masses. IMPRESSION: 1. Impacted left femoral neck fracture. Dictated by: Eduardo Hermosillo M.D. on 04/07/2020 at 19:40 Approved by: Eduardo Hermosillo M.D. on 04/07/2020 at 19:41 Extremity x-ray #3: Radiologist's Impression: [address] [id number] ReportSigned Patient: Rody Rodas LMR#: [id number]: 9Acct:[id number]/Sex: 79 / FDate of Service: 04/07/20Loc: EDAccession Number: [id number] Procedure: XR hip w pel if done LT 2V Ordering Provider: Marcos Spear MD PROCEDURE: XR HIP W PEL IF DONE LT 2V INDICATIONS: fall/pain TECHNIQUE: AP pelvis with lateral view of the left hip. COMPARISON: [facility], , HIP 2V RIGHT, 05/24/2012, 11:09. FINDINGS: Bones: There is a moderately impacted subcapital left femoral neck fracture. Pelvic ring appears intact. A right hip prosthesis is redemonstrated. No suspicious bony lesions. Soft tissues: The visualized bowel gas pattern is normal. No suspicious soft tissue calcifications. IMPRESSION: 1. Impacted left femoral neck fracture Dictated by: Eduardo Hermosillo M.D. on 04/07/2020 at 19:43 Approved by: Eduardo Hermosillo M.D. on 04/07/2020 at 19:44 [facility] Narrative Medical decision making narrative: Appropriate for admission. Spoke with Orthopedics as well as hospitalist. Son at bedside and reviewed results with him and patient. Pain is controlled. Discharge Plan Departure Patient Disposition: Admitted As Inpatient Clinical Impression: Fracture of hip Qualifiers: Encounter type: initial encounter Fracture type: closed Laterality: left Qualified Code(s): S72.002A - Fracture of unspecified part of neck of left femur, initial encounter for closed fracture Fracture of wrist, closed Qualifiers: Encounter type: initial encounter Laterality: left Qualified Code(s): S62.102A - Fracture of unspecified carpal bone, left wrist, initial encounter for closed fracture Admit Date/Time: 04/07/20 20:10 Admit Provider: Shellie Christianson
[2020-04-07] MEDS: MORPHINE 4 MG/ML INJ IV (18:51)
[2020-04-07] MEDS: ONDANSETRON 4 MG/2 ML INJ IV (18:51)
--- NOTE | 2020-04-07 19:08 | DI.RAD.S_ITS ---
PROCEDURE: XR WRIST LT MIN 3V INDICATIONS: fall, swelling and pain TECHNIQUE: 3 views of the wrist were acquired. COMPARISON: None. FINDINGS: Bones: Nondisplaced comminuted distal radius fracture extending to articular surface. Triquetral fracture seen on lateral view. Question nondisplaced scaphoid fracture. No suspicious bony lesions. Soft tissues: No suspicious soft tissue calcifications. IMPRESSION: 1. Nondisplaced comminuted distal radius fracture extending to articular surface. 2. Triquetral fracture. 3. Question nondisplaced scaphoid waist fracture. Comment: Suggest CT wrist to evaluate scaphoid. Dictated by: Brad Delgado M.D. on 04/07/2020 at 19:29 Approved by: Brad Delgado M.D. on 04/07/2020 at 19:31
[2020-04-07 19:58] LABS: Add Manual Diff / Slide Review NO; Basophils Absolute Auto 0 /uL (0-100); Basophils Percent Auto 0.6 % (0-2); Eosinophils Absolute Auto 200 /uL (0-450); Eosinophils Percent Auto 2.8 % (2-4); Hematocrit 35.7 % (36-46); Hemoglobin 11.6 g/dL (12.0-16.0); Lymphocytes Absolute Auto 600 /uL (1100-4500); Lymphocytes Percent Auto 10.3 % (25-40); Mean Corpuscular HGB Conc 32.5 % (30-36); Mean Corpuscular Hemoglobin 28.3 PG (26-34); Monocytes Absolute Auto 800 /uL (0-900); Monocytes Percent Auto 14.1 % (3-14); Neutrophils Absolute Auto 4000 /uL (1500-7000); Neutrophils Percent Auto 72.2 % (50-75); Platelet Count 221 X10^3/uL (150-400); Red Cell Distribution Width 13.8 % (11.6-14.8); White Blood Cell Count 5.6 X10^3/uL (4.5-11.0)
[2020-04-07 20:05] LABS: INR 1.4 (0.9-1.3); Prothrombin Time 16.2 SECONDS (10.1-12.7)
[2020-04-07 20:08] LABS: PTT Partial Thromboplastin Tim 49 SECONDS (26.4-36.2)
[2020-04-07 20:10] LABS: Alanine Aminotransferase 19 IU/L (<35); Albumin 3.9 g/dL (3.5-5.0); Albumin Globulin Ratio 1.3 (1.0-2.8); Alkaline Phosphatase 61 U/L (38-126); Aspartate Aminotransferase 27 IU/L (14-36); BUN Creatinine Ratio 28.3 (6-22); Bilirubin Total 0.4 mg/dL (0.2-1.3); Blood Urea Nitrogen 26 mg/dL (7-17); Calcium 9.2 mg/dL (8.4-10.2); Carbon Dioxide 31 mmol/L (22-32); Chloride 103 mmol/L (98-107); Estimated Glomerular Filt Rate 58.6 mL/min (>60); Globulin 2.9 g/dL (1.7-4.1); Glucose 109 mg/dL (80-110); HEMOLYSIS < 15 (0-50); Potassium 4.2 mmol/L (3.4-5.1); Sodium 136 mmol/L (137-145); Total Protein 6.8 g/dL (6.3-8.2)
[2020-04-07 20:43] LABS: COVID19 -Nasal RAPID Negative (Negative)
[2020-04-07 21:25] VITALS: BP 150/116; PULSE 96; RESP 20; TEMP 36.5; O2SAT 98
[2020-04-07 21:36] VITALS: BMI 27.8
[2020-04-07 23:03] LABS: Magnesium 2.3 mg/dL (1.6-2.3)
[2020-04-07] MEDS: dilTIAZem CD 180 MG CAP 360 MG PO (23:42)
[2020-04-07] MEDS: MORPHINE 2 MG/ML INJ IV (23:43)
[2020-04-07] MEDS: SODIUM CHLORIDE 0.45% 1,000 ML 100 ML IV (23:43)
[2020-04-08 00:26] VITALS: BP 162/101; PULSE 102; RESP 16; TEMP 36.6; O2SAT 92
--- NOTE | 2020-04-08 01:33 | PM.HP.1 ---
History of Present Illness History of Present Illness Date Patient Seen: 04/07/20 Time Patient Seen: 23:30 Chief complaint: at home fall Narrative: Rody Rodas is a pleasant 79 y.o. female with atrial fibrillation anticoagulated on eliquis and and essential hypertension was in her usual state of health when she went out to her mail box and tripped in the lawned area next to her driveway. She fell and sustained a fracture to her left hip and left wrist. She denies loosing consciousness, feeling dizzy prior to the fall. She denies hitting her head or having a headache. Denies shortness of breath, chest pain, nausea or vomiting, abdominal pain, dysurea, diarrhea or constipation. She is concerned about being able to return home. She and her younger sister having been living together for 40 years and her sister is currently undering surgery at [facility] for a small bowel obstruction. Xray of the left wrist found: Nondisplaced comminuted distal radius fracture extending to articular surface. Triquetral fracture seen on lateral view. Question nondisplaced scaphoid fracture. Xray of the left hip indicated an impacted left femoral neck fracture. She is afebrile, blood pressure is 162/101, heart rate 102, respiratory rate 16, oxygen saturation of 92% on room air, she weighs 73.5 kg with a BMI of 27.8. She is mildly anemic at 11.6 and 35.7 hemoglobin and hematocrit, PT/INR is 16.2 and 1.4 respectively, CBC is unremarkable, sodium was 136 BUN is 26 and a GFR estimated at 58.6, liver enzymes are within normal limits, and COVID-19 PCR was negative. Patient History Medical History (Updated 04/08/20 @ 01:47 by SILVINA Montgomery) Atrial fibrillation Fatigue GERD (gastroesophageal reflux disease) Obstructive sleep apnea syndrome (~10/2019) Snoring Surgical History History of cataract removal with insertion of prosthetic lens History of right hip replacement Family & Social History Family History Mother Restless legs syndrome (RLS) Hypertension Heart disease Father Hypertension Heart disease Family/Other Restless legs syndrome (RLS) Obesity Hypertension Family/Other Snoring Obstructive sleep apnea Depression Alcohol abuse Substance abuse Anxiety Bipolar disorder Family/Other Obesity Social History: household members family Prior Living Arrangements House lives independently Yes caregiver/support person No Safety & Behavioral: Feels Safe in Current Yes Environment Been Physically Hurt or No Threatened By a Person Suicidal Ideation Description None Tobacco & Substance use: Smoking Status Never smoker alcohol intake current alcohol intake frequency a few times a month Substance Use Type does not use Meds Home Medications and Allergies Home Medications Medication Instructions Recorded Confirmed Type lansoprazole 15 mg PO QDAY #0 08/07/16 04/07/20 History Eliquis 5 mg PO BID #180 tab 10/30/16 04/07/20 Rx diltiazem HCl 360 mg PO QDAY #90 cap 02/05/17 04/07/20 Rx [id number]-[id number] 1 tab PO DAILY 04/07/20 04/07/20 History [Calcium Citrate + D with Mag] cranberry conc-ascorbic acid cap PO PRN PRN 04/07/20 History [Cranberry Plus Vitamin C] valsartan 80 mg PO DAILY 04/07/20 04/07/20 History Allergies Allergy/AdvReac Type Severity Reaction Status Date / Time Penicillins Allergy Mild RASH Verified 01/05/20 20:59 ciprofloxacin AdvReac Mild FEVER Verified 04/07/20 22:00 hydromorphone AdvReac Mild VOMITING Verified 04/07/20 22:00 warfarin AdvReac Mild FEVER Verified 01/05/20 20:59 Declines blood Transfusion AdvReac Unknown Islam Uncoded 01/05/20 20:59 Grounds Review of Systems Review of Systems ROS: Yes All systems reviewed with the patient and are negative except as otherwise documented Exam Vital Signs (past 8 hours): - 04/07/20 18:30 04/07/20 21:25 04/08/20 00:26 Temperature 98.0 F 97.7 F 97.9 F Pulse Rate 84 96 H 102 H Respiratory Rate 18 20 16 Blood Pressure 153/78 H 150/116 H 162/101 H Pulse Oximetry 93 98 92 Oxygen Delivery Method Room Air Oxygen Flow Rate 0 Narrative Exam Narrative: Gen: Alert, oriented, well-developed 79 y.o. female, mildly uncomfortable HEENT: normocephalic, atraumatic, conjunctiva clear, sclera non-icteric, oral mucosa pink and moist Neck: supple, full ROM, no JVD, trachea is midline Resp: Lungs CTA, non-labored breathing CV: RRR, no murmur or rubs Abd: soft, non-tender, normoactive BTs Skin: Appears to have had significant sun exposure through the years, no lesions or rashes, dry and intact Neuro: Alert and oriented X 4 w/no focal deficits. Speech clear and coherent. Extremities: Left wrist in a cast, left hip is retracted, is normallly ambulatory, negative Jaime?s sign Psyche: normal mood and affect. Objective Labs Result Diagrams: 04/07/20 19:46 04/07/20 19:46 Labs: Laboratory Results - last 24 hr 04/07/20 04/07/20 04/07/20 19:46 19:46 19:46 WBC 5.6 RBC 4.10 Hgb 11.6 L Hct 35.7 L MCV 87.0 MCH 28.3 MCHC 32.5 RDW 13.8 Plt Count 221 Neut % (Auto) 72.2 Lymph % (Auto) 10.3 L [place] % (Auto) 14.1 H Eos % (Auto) 2.8 Baso % (Auto) 0.6 Neut # (Auto) 4000 Lymph # (Auto) 600 L [place] # (Auto) 800 Eos # (Auto) 200 Baso # (Auto) 0 PT 16.2 H INR 1.4 H APTT 49 H Sodium 136 L Potassium 4.2 Chloride 103 Carbon Dioxide 31 BUN 26 H Creatinine 0.92 Estimated GFR 58.6 L BUN/Creatinine Ratio 28.3 H Glucose 109 Calcium 9.2 Magnesium Total Bilirubin 0.4 AST 27 ALT 19 Alkaline Phosphatase 61 Total Protein 6.8 Albumin 3.9 Globulin 2.9 Albumin/Globulin Ratio 1.3 COVID-19 PCR 04/07/20 04/07/20 19:46 20:00 WBC RBC Hgb Hct MCV MCH MCHC RDW Plt Count Neut % (Auto) Lymph % (Auto) [place] % (Auto) Eos % (Auto) Baso % (Auto) Neut # (Auto) Lymph # (Auto) [place] # (Auto) Eos # (Auto) Baso # (Auto) PT INR APTT Sodium Potassium Chloride Carbon Dioxide BUN Creatinine Estimated GFR BUN/Creatinine Ratio Glucose Calcium Magnesium 2.3 Total Bilirubin AST ALT Alkaline Phosphatase Total Protein Albumin Globulin Albumin/Globulin Ratio COVID-19 PCR Negative Assessment & Plan Assessment & Plan narrative: Rody Rodas is admitted for treatment and management of a left hip fracture. Dr. De Leon notified me of the need for her admission. Left femoral neck fracture, acute, present on admission -Dr. De Leon to take her into surgery on Monday 04/09 -She has requested to stop Eliquis until post surgery and this has been done. Left wrist fracture, acute, present on admission -Currently with a hard splint -Rads recommend a CT or MR of the wrist, there appears to be several sites of fracture. Atrial fibrillation, chronic and present on admission -Eliquis is stopped for now -Continue home dose of diltiazem 360 mg daily Essential hypertension, chronic and present on admission Continue home dose of valsartan 80 mg po daily GERD, chronic and present on admission -Normally takes lansopazole -Start pantoprazole 40 mg po daily while here VTE prophylaxis: Wells risk score: 3 Bilateral SCDs and return to Eliquis post-operatively Consults: Dr. De Leon, Orthopedic surgery, consult and involvement is appreciated. Patient is admitted under inpatient status with expected length of stay greater than 2 midnights due to severity of presenting symptoms, risk of adverse event, and complexity of treatment plan. FEN: IV NS at 100 ml/hour, heart healthy diet, BMP and magnesium in the am. Dispo: Patient desires to be discharged back to her home Code Status: Full code as discussed with patient. Scores Wells' Criteria for PE Clinical signs and symptoms of DVT: No PE is #1 Dx or equally likely: No Heart rate > 100: Yes Immobilization at least 3 days or surg in previous 4 weeks: Yes History of PE or DVT: No Hemoptysis: No Malignancy w/Treatment within 6 months or palliative: No Wells' PE Score total: 3.0 Quality VTE Deep Vein Thrombosis/Pulmonary Embolism Present on Admission: No
[2020-04-08] MEDS: ACETAMINOPHEN 325 MG TABLET 650 MG PO ×2 (02:30→05:57)
[2020-04-08] MEDS: MORPHINE 2 MG/ML INJ IV ×2 (03:32→05:03)
[2020-04-08 04:25] VITALS: BP 134/81; PULSE 88; RESP 16; TEMP 36.6; O2SAT 95
[2020-04-08 05:21] LABS: Add Manual Diff / Slide Review NO; Basophils Absolute Auto 0 /uL (0-100); Basophils Percent Auto 0.3 % (0-2); Eosinophils Absolute Auto 0 /uL (0-450); Eosinophils Percent Auto 0.5 % (2-4); Hemoglobin 11.4 g/dL (12.0-16.0); Lymphocytes Absolute Auto 700 /uL (1100-4500); Lymphocytes Percent Auto 9.6 % (25-40); Mean Corpuscular HGB Conc 32.6 % (30-36); Mean Corpuscular Hemoglobin 28.3 PG (26-34); Mean Corpuscular Volume 86.8 fL (80-100); Monocytes Absolute Auto 900 /uL (0-900); Neutrophils Absolute Auto 5700 /uL (1500-7000); Neutrophils Percent Auto 77.6 % (50-75); Platelet Count 196 X10^3/uL (150-400); Red Blood Cell Count 4.03 X10^6/uL (4.0-5.2); Red Cell Distribution Width 14.1 % (11.6-14.8); White Blood Cell Count 7.3 X10^3/uL (4.5-11.0)
[2020-04-08 05:30] LABS: Magnesium 1.9 mg/dL (1.6-2.3)
[2020-04-08 05:31] LABS: Alanine Aminotransferase 18 IU/L (<35); Albumin 3.8 g/dL (3.5-5.0); Albumin Globulin Ratio 1.4 (1.0-2.8); Alkaline Phosphatase 59 U/L (38-126); Aspartate Aminotransferase 26 IU/L (14-36); BUN Creatinine Ratio 23.9 (6-22); Bilirubin Total 0.4 mg/dL (0.2-1.3); Blood Urea Nitrogen 21 mg/dL (7-17); Calcium 8.9 mg/dL (8.4-10.2); Carbon Dioxide 29 mmol/L (22-32); Chloride 99 mmol/L (98-107); Estimated Glomerular Filt Rate > 60.0 mL/min (>60); Globulin 2.8 g/dL (1.7-4.1); Glucose 117 mg/dL (80-110); HEMOLYSIS < 15 (0-50); Potassium 4.4 mmol/L (3.4-5.1); Sodium 132 mmol/L (137-145); Total Protein 6.6 g/dL (6.3-8.2)
[2020-04-08] MEDS: PANTOPRAZOLE 40 MG TABLET PO (05:57)
[2020-04-08] MEDS: MORPHINE 4 MG/ML INJ IV (07:46)
[2020-04-08 08:00] VITALS: BP 129/72; PULSE 83; RESP 14; TEMP 36.7; O2SAT 91
[2020-04-08] MEDS: SODIUM CHLORIDE 0.9% 1,000 ML 100 ML IV ×2 (08:35→21:35)
[2020-04-08] MEDS: dilTIAZem CD 180 MG CAP 360 MG PO (08:44)
[2020-04-08] MEDS: ACETAMINOPHEN 325 MG TABLET 975 MG PO ×3 (08:48→19:33)
[2020-04-08] MEDS: VALSARTAN 80 MG TABLET PO (08:48)
--- NOTE | 2020-04-08 08:51 | PC.NURSE ---
Am shift pt is A/o x4, pain in uncontrolled at start of shift, Medicated with Morphine 4mg. This allows for repositioning. Lungs are CTA, some desating noted after narcotic admin. 1L O2 placed via NC. IV changed to 0.9% Nacl per order. Pt is anxious about abililty to return to home after Sx. Lives at home with sister, who actually had surgery 04/07/2020 @ [facility]. CMS intact to LUE, wrist is splinted and remains elevated to pillow in bed. L hip with ice pack in place, CMS intact distally. Call light in reach, BA active.
--- NOTE | 2020-04-08 10:38 | CM.DANOTE ---
Patient is an 79 year old female who was admitted on 04/07/20 for GLF. Pt has [facility] MCR for insurance and her PCP is Dr. Jovana Solo. EMR was reviewed. Per MD, pt with a hx of AFIB and had a GLF outside with fx of left hip and left wrist. Per Ortho MD, pt signed consents and scheduled for surgery on her hip tomorrow due to being on Eliquis at baseline. Per RN, pt alert and oriented and Jahovah Witness and therefore no blood products in case needed after surgery. SW met bedside with pt and explained role and she confirms that she lives at home in [place] with her sister Nida and they have lived together for almost 40 years and are both quite active and independent at baseline and pt drives and does not use DME to ambulate. Pt denies any hx of HH or SNF and states her Dtr and sister are her DPOA's. Pt frustrated with herself for falling as her sister is currently having surgery for SBO at [facility] and pt was planning to be available for assist if needed. Pt hopeful to be able to d/c home after surgery and aware that the PT team will eval and make recommendations after surgery. Plan: SW to follow closely after surgery scheduled for tomorrow towards PT/OT eval and recommendations to determine if pt safe for return home and any identified needs. URMILA [place] Discharge Planning/Care Management CM Discharge Assessment Start: 04/08/20 10:32 Freq: Status: Active Protocol: Document 04/08/20 10:33 BF (Rec: 04/08/20 10:38 BF [id number]) Discharge Planning Assessment Assigned Aesthetics Instructor URMILA Hurt DPOA/Assigned Designee Name Dtr and sister Nida Contact Information [phone] Advance Directives? Yes History Provided By Patient,Medical Record Has Patient been admitted in last 30 No days? Prior Living Arrangements House Household Members family Type of transporation used prior to Drives own vehicle admit Comment Lives with sister for the past 40 years in [place] Independent with ADL's Yes Is patient alert and oriented? Yes Caregiver for Another No: sister having surgery though too Patient/Family Preference Home with Home Health Comment Pending surgery and PT/OT eval to determine if safe for home and if HH needed. Barriers to Discharge No Discharge Plan Home with Home Health Additional Comment Waiting for PT/OT eval post surgery tomorrow Whiteboard Updated in Patient Room with Yes name and ext. # of Aesthetics Instructor Review Status In Process Please Provide Date Initial DC 04/08/20 Assessment Was Performed Next Review Type Continued Stay Review
--- NOTE | 2020-04-08 10:54 | PM.CN ---
History of Present Illness Consult details Date Patient Seen: 04/08/20 Time Patient Seen: 10:54 Chief complaint: at home fall Reason for consult: Left hip fracture, left wrist fracture Requesting provider: Marcos Spear Narrative: Zeenta is an 79-year-old female Denominational with a history of AFib on [place] who fell while checking her mail approximately 5:20 p.m. on 04/07/2020. She stepped right on the edge of the and the ground. She fell onto her left side. She was brought to [facility] x-ray was taken and demonstrated a left femoral neck fracture and a comminuted but nondisplaced distal radius fracture and triquetral fracture. She lives in a one-story house with her sister. Her sister is currently hospitalized at [facility] for abdominal surgery and crest syndrome. She does have a remote history of a right hip fracture 8 years ago that was initially fixed with a DHS went on to failure and was converted to a total hip arthroplasty in [place]. She is a Denominational. She does refuse blood products. She denies any fevers chills nausea or vomiting. She had a rough time with pain overnight but had some medication this morning and is much more comfortable right now. Meds Home Medications and Allergies Home Medications Medication Instructions Recorded Confirmed Type lansoprazole 15 mg PO QDAY #0 08/07/16 04/07/20 History Eliquis 5 mg PO BID #180 tab 10/30/16 04/07/20 Rx diltiazem HCl 360 mg PO QDAY #90 cap 02/05/17 04/07/20 Rx footsxr-cqo-tol [id number] 1 tab PO DAILY 04/07/20 04/07/20 History [Calcium Citrate + D with Mag] cranberry conc-ascorbic acid 1 cap PO PRN PRN 04/07/20 04/08/20 History [Cranberry Plus Vitamin C] valsartan 80 mg PO DAILY 04/07/20 04/07/20 History Allergies Allergy/AdvReac Type Severity Reaction Status Date / Time Penicillins Allergy Mild RASH Verified 01/05/20 20:59 ciprofloxacin AdvReac Mild FEVER Verified 04/07/20 22:00 hydromorphone AdvReac Mild VOMITING Verified 04/07/20 22:00 warfarin AdvReac Mild FEVER Verified 01/05/20 20:59 Declines blood Transfusion AdvReac Unknown Episcopalian Uncoded 01/05/20 20:59 Grounds Review of Systems Review of Systems Narrative: Denies fevers chills nausea or vomiting. History of AFib the last dose of Eliquis was Friday morning on the . Musculoskeletal review of systems indicated in HPI. Does have a history of sleep apnea the uses a CPAP. ROS: Yes All systems reviewed with the patient and are negative except as otherwise documented Exam Vital Signs (past 8 hours): - 04/08/20 04:25 04/08/20 08:00 Temperature 97.9 F 98.0 F Pulse Rate 88 83 Respiratory Rate 16 14 Blood Pressure 134/81 129/72 Pulse Oximetry 95 91 Oxygen Delivery Method Nasal Cannula Oxygen Flow Rate 0.5 Narrative Exam Narrative: General exam is alert oriented female sitting in bed no acute distress HEENT exam normocephalic a traumatic Respiratory exam unlabored on room air, lungs clear to auscultation bilaterally CV exam irregular/AFib Abdomen exam: Soft nontender Musculoskeletal exam: Left upper extremity in a volar wrist splint. No pain at the elbow. Full elbow range of motion. No pain over the clavicles. Able to wiggle fingers demonstrates flexion extension of the thumb. T tenderness over the wrist. Brisk capillary refill. Right upper extremity full range of motion and no tenderness to palpation. Right hip incision well healed thigh is soft. No pain along the thigh and knee or lower leg. Negative Jaime. Demonstrates 5/5 flexion extension of the foot and ankle Left lower extremity demonstrates characteristic shortened externally rotated deformity. Demonstrates flexion extension of the ankle. Sensation grossly intact to light touch. Palpable dorsalis pedis pulses. Brisk capillary refill. Remainder of his exam deferred due to known hip fracture. Does endorse pain at the hip. No obvious large ecchymosis or wounds. Objective Labs Result Diagrams: 04/08/20 04:35 04/08/20 04:35 Labs: Laboratory Results - last 24 hr 04/07/20 04/07/20 04/07/20 19:46 19:46 19:46 WBC 5.6 RBC 4.10 Hgb 11.6 L Hct 35.7 L MCV 87.0 MCH 28.3 MCHC 32.5 RDW 13.8 Plt Count 221 Neut % (Auto) 72.2 Lymph % (Auto) 10.3 L [place] % (Auto) 14.1 H Eos % (Auto) 2.8 Baso % (Auto) 0.6 Neut # (Auto) 4000 Lymph # (Auto) 600 L [place] # (Auto) 800 Eos # (Auto) 200 Baso # (Auto) 0 PT 16.2 H INR 1.4 H APTT 49 H Sodium 136 L Potassium 4.2 Chloride 103 Carbon Dioxide 31 BUN 26 H Creatinine 0.92 Estimated GFR 58.6 L BUN/Creatinine Ratio 28.3 H Glucose 109 Calcium 9.2 Magnesium Total Bilirubin 0.4 AST 27 ALT 19 Alkaline Phosphatase 61 Total Protein 6.8 Albumin 3.9 Globulin 2.9 Albumin/Globulin Ratio 1.3 COVID-19 PCR 04/07/20 04/07/20 04/08/20 19:46 20:00 04:35 WBC 7.3 RBC 4.03 Hgb 11.4 L Hct 35.0 L MCV 86.8 MCH 28.3 MCHC 32.6 RDW 14.1 Plt Count 196 Neut % (Auto) 77.6 H Lymph % (Auto) 9.6 L [place] % (Auto) 12.0 Eos % (Auto) 0.5 L Baso % (Auto) 0.3 Neut # (Auto) 5700 Lymph # (Auto) 700 L [place] # (Auto) 900 Eos # (Auto) 0 Baso # (Auto) 0 PT INR APTT Sodium Potassium Chloride Carbon Dioxide BUN Creatinine Estimated GFR BUN/Creatinine Ratio Glucose Calcium Magnesium 2.3 Total Bilirubin AST ALT Alkaline Phosphatase Total Protein Albumin Globulin Albumin/Globulin Ratio COVID-19 PCR Negative 04/08/20 04/08/20 04:35 04:35 WBC RBC Hgb Hct MCV MCH MCHC RDW Plt Count Neut % (Auto) Lymph % (Auto) [place] % (Auto) Eos % (Auto) Baso % (Auto) Neut # (Auto) Lymph # (Auto) [place] # (Auto) Eos # (Auto) Baso # (Auto) PT INR APTT Sodium 132 L Potassium 4.4 Chloride 99 Carbon Dioxide 29 BUN 21 H Creatinine 0.88 Estimated GFR > 60.0 BUN/Creatinine Ratio 23.9 H Glucose 117 H Calcium 8.9 Magnesium 1.9 Total Bilirubin 0.4 AST 26 ALT 18 Alkaline Phosphatase 59 Total Protein 6.6 Albumin 3.8 Globulin 2.8 Albumin/Globulin Ratio 1.4 COVID-19 PCR Assessment & Plan Assessment and plan (1) Atrial fibrillation: Problem details: Typically managed with Eliquis. Holding Eliquis now preoperative. Will be able to restart postoperatively management per medical team. Status: Chronic (2) Fracture of hip: Problem details: Displaced left femoral neck fracture. Patient is indicated for endoprosthetic repair with hemiarthroplasty. This will allow immediate weightbear as tolerated. And reduce the risk of hardware failure and reduce dislocation risk. Awaiting a 48 hours off of the Eliquis anticoagulation for surgery to reduce the risk of symptomatic up blood loss. Patient is to hold this witness. Does refuse blood products. We will use TXA. And can start iron. The risks and benefits of the procedure have been discussed with the patient even opportunity to ask questions. The risks of surgery include but are not limited to infection, leg-length discrepancy persistence of pain, damage to nerves and blood vessels, posttraumatic arthritis, dislocation, intraoperative fracture, DVT, PE, cardiopulmonary complications and . The patient expressed a thorough understanding of the risks and benefits of surgery and has elected to proceed. Consent was signed. Plan will be for surgery tomorrow morning when the patient has been off of Eliquis for 48 hours. Discussed the hip fractures are surgically managed to allow early weight-bearing and minimize complications associated with in more mobility including persistent pain, convalescence, pneumonia and persistent dysfunction. Qualifiers: Encounter type: initial encounter Fracture type: closed Laterality: left Qualified Code(s): S72.002A - Fracture of unspecified part of neck of left femur, initial encounter for closed fracture Status: Acute (3) Refusal of blood transfusions as patient is Denominational: Problem details: Discussed these risks with the patient. Will use TXA. Patient starting hemoglobin is 11. May need additional iron postoperatively and discussed with patient that with significant blood loss may require a prolonged recovery/fatigue. Patient understands and agrees. Status: Acute (4) Fracture of wrist, closed: Problem details: Left wrist fracture minimally displaced but intra-articular extension the distal radius. Also triquetrum fracture. Appropriate alignment for non operative treatment right now. In a splint. We will convert to a cast. And monitor serial x-rays. Cast will allow weight-bearing on the forearm and the use of a forearm walker. Discussed injury to both upper and lower extremity will make recovery more difficult for her regarding balance and mobility. Qualifiers: Encounter type: initial encounter Laterality: left Qualified Code(s): S62.102A - Fracture of unspecified carpal bone, left wrist, initial encounter for closed fracture Status: Acute
[2020-04-08] MEDS: OXYCODONE IR 5 MG TABLET PO ×2 (11:25→19:35)
--- NOTE | 2020-04-08 11:30 | P.PN_ITS ---
Subjective Subjective Date Patient Seen: 04/08/20 Interval history: Rody Rodas is an 79-year-old female with a past medical history significant for hypertension, chronic atrial fibrillation on Eliquis, GERD, and ALVIN on CPAP who presented to the ED after sustaining a ground level fall with left wrist and hip pain and inability to ambulate. The patient is resting in bed comfortably. She reports significant pain overnight due to not requesting pain medication and poor sleep. Her left hip and arm pain are much better controlled today on pain medication. She denies headache, cough, shortness of breath, chest pain, abdominal pain, nausea, vomiting, fever, chills, dysuria, or diarrhea. She is voiding via Page catheter without difficulty. She has not yet had a bowel movement and is concerned regarding constipation and a bowel regimen has been implemented. She is on strict bed rest pending surgical repair of left hip. Exam Vital Signs (past 8 hours): - 04/08/20 04:25 04/08/20 08:00 Temperature 97.9 F 98.0 F Pulse Rate 88 83 Respiratory Rate 16 14 Blood Pressure 134/81 129/72 Pulse Oximetry 95 91 Oxygen Delivery Method Nasal Cannula Oxygen Flow Rate 0.5 Narrative Exam Narrative: General: Elderly female lying in bed in no acute distress, well-developed, well- nourished, appropriately interactive. HEENT: Normocephalic, atraumatic. External ears without defect. Pupils equal, round, and reactive to light. Anicteric sclerae, moist conjunctivae, and no lid lag. Oropharynx free of erythema and cobble stoning with moist mucosa. Neck: Supple with full range of motion. No lymphadenopathy or thyromegaly. Cardiovascular: Irregularly irregular without murmurs, rubs, or gallops appreciated Pulmonary: Clear to auscultation bilaterally without crackles, wheezes, or rhonchi. Normal respiratory effort with no use of accessory muscles. Abdomen: Soft, bowel sounds present, nontender, nondistended. No hepatosplenomegaly or masses appreciated. Extremities: No clubbing, cyanosis, or edema. Left hip without obvious deformity and no pain with palpation. Left arm in soft splint. Skin: Normal temperature, turgor, and texture; no rash, ulcers, or subcutaneous nodules appreciated. Neurological: Cranial nerves grossly intact. Psychiatric: Normal mood and affect. Alert and oriented to person, place, and time. Objective Labs Result Diagrams: 04/08/20 04:35 04/08/20 04:35 Labs: Laboratory Results - last 24 hr 04/07/20 04/07/20 04/07/20 19:46 19:46 19:46 WBC 5.6 RBC 4.10 Hgb 11.6 L Hct 35.7 L MCV 87.0 MCH 28.3 MCHC 32.5 RDW 13.8 Plt Count 221 Neut % (Auto) 72.2 Lymph % (Auto) 10.3 L [place] % (Auto) 14.1 H Eos % (Auto) 2.8 Baso % (Auto) 0.6 Neut # (Auto) 4000 Lymph # (Auto) 600 L [place] # (Auto) 800 Eos # (Auto) 200 Baso # (Auto) 0 PT 16.2 H INR 1.4 H APTT 49 H Sodium 136 L Potassium 4.2 Chloride 103 Carbon Dioxide 31 BUN 26 H Creatinine 0.92 Estimated GFR 58.6 L BUN/Creatinine Ratio 28.3 H Glucose 109 Calcium 9.2 Magnesium Total Bilirubin 0.4 AST 27 ALT 19 Alkaline Phosphatase 61 Total Protein 6.8 Albumin 3.9 Globulin 2.9 Albumin/Globulin Ratio 1.3 COVID-19 PCR 04/07/20 04/07/20 04/08/20 19:46 20:00 04:35 WBC 7.3 RBC 4.03 Hgb 11.4 L Hct 35.0 L MCV 86.8 MCH 28.3 MCHC 32.6 RDW 14.1 Plt Count 196 Neut % (Auto) 77.6 H Lymph % (Auto) 9.6 L [place] % (Auto) 12.0 Eos % (Auto) 0.5 L Baso % (Auto) 0.3 Neut # (Auto) 5700 Lymph # (Auto) 700 L [place] # (Auto) 900 Eos # (Auto) 0 Baso # (Auto) 0 PT INR APTT Sodium Potassium Chloride Carbon Dioxide BUN Creatinine Estimated GFR BUN/Creatinine Ratio Glucose Calcium Magnesium 2.3 Total Bilirubin AST ALT Alkaline Phosphatase Total Protein Albumin Globulin Albumin/Globulin Ratio COVID-19 PCR Negative 04/08/20 04/08/20 04:35 04:35 WBC RBC Hgb Hct MCV MCH MCHC RDW Plt Count Neut % (Auto) Lymph % (Auto) [place] % (Auto) Eos % (Auto) Baso % (Auto) Neut # (Auto) Lymph # (Auto) [place] # (Auto) Eos # (Auto) Baso # (Auto) PT INR APTT Sodium 132 L Potassium 4.4 Chloride 99 Carbon Dioxide 29 BUN 21 H Creatinine 0.88 Estimated GFR > 60.0 BUN/Creatinine Ratio 23.9 H Glucose 117 H Calcium 8.9 Magnesium 1.9 Total Bilirubin 0.4 AST 26 ALT 18 Alkaline Phosphatase 59 Total Protein 6.6 Albumin 3.8 Globulin 2.8 Albumin/Globulin Ratio 1.4 COVID-19 PCR PFSH Medical History Atrial fibrillation Fatigue GERD (gastroesophageal reflux disease) Obstructive sleep apnea syndrome (~10/2019) Snoring Surgical History History of cataract removal with insertion of prosthetic lens History of right hip replacement Family History Mother Restless legs syndrome (RLS) Hypertension Heart disease Father Hypertension Heart disease Family/Other Restless legs syndrome (RLS) Obesity Hypertension Family/Other Snoring Obstructive sleep apnea Depression Alcohol abuse Substance abuse Anxiety Bipolar disorder Family/Other Obesity Social History marital status: number of children: 5 household members: family lives independently: Yes caregiver/support person: No housing: house Smoking Status: Never smoker alcohol intake: current substance use type: does not use Assessment & Plan Assessment & Plan narrative: Rody Rodas is an 79-year-old female with a past medical history significant for hypertension, chronic atrial fibrillation on Eliquis, GERD, and ALVIN on CPAP who presented to the ED after sustaining a ground level fall with left wrist and hip pain and inability to ambulate. 1. Acute pathological left femoral neck fracture, present on admission. Active. -Patient presented after sustaining ground level fall with left hip pain and inability to ambulate. -Hip x-ray demonstrated left impacted femoral neck fracture. -Held home Eliquis. -Consulted orthopedic surgery, Dr. De Leon, who plans to perform left hip hemiarthroplasty on 04/09/20. NPO at midnight. -Continue acetaminophen 975 mg three times daily, tramadol 50 mg 4 times daily as needed for moderate pain, and oxycodone 5 mg every 3 hours or morphine 2 mg IV every 4 hours as needed for severe break through pain. -Continue calcium and vitamin D3. Patient will need to be treated for osteoporosis as an outpatient per PCP or orthopedic surgery. 2. Acute pathological left wrist fracture, present on admission. Active. -Left wrist x-ray demonstrated nondisplaced comminuted distal radius fracture extending to articular surface and triquetral fracture. -Consulted orthopedic surgery, Dr. De Leon, who plans for non operative treatment and will convert splint to hard cast and monitor serial x-rays to assure proper alignment. Cast will allow weight-bearing on the forearm and the use of a forearm walker. 3. Acute blood loss anemia, present on admission. Active. -Initial hemoglobin 11.6. Baseline hemoglobin 13-14 in 07/2018. Patient is a J ehovah's Witness and refuses blood transfusion. Orthopedic surgery plans to use TXA and started ferrous sulfate 325 mg daily. -Continue to monitor H&H daily. 4. Chronic atrial fibrillation, chronic, present on admission. Stable. -Held home Eliquis. -Continue home diltiazem 360 mg daily 5. Hypertension, chronic, present on admission. Stable. -Continue home diltiazem 360 mg daily and valsartan 80 mg daily today and will hold ARB tomorrow to avoid intra and postoperative hypotension. 6. GERD, chronic, present on admission. Stable. -Continue equivalent of home PPI with pantoprazole 40 mg daily. 7. ALVIN on CPAP, present on admission. Stable. -Patient will have daughter bring and her home CPAP. Continue home CPAP per RT protocol. Code Status: Full code VTE prophylaxis: SCDs, held chemical prophylaxis with home Eliquis pending surgical repair of left hip Disposition: Patient remains hospitalized pending surgical repair of left hip. Quality VTE Deep Vein Thrombosis/Pulmonary Embolism Present on Admission: No
[2020-04-08] MEDS: DOCUSATE 100 MG CAPSULE PO ×2 (13:56→19:35)
[2020-04-08] MEDS: FERROUS SULFATE 325 MG TABLET PO (15:31)
[2020-04-08 15:52] VITALS: BP 143/92; PULSE 101; RESP 20; TEMP 37.6; O2SAT 91
[2020-04-08] MEDS: CALCIUM CARB/VIT D3 500/200 TABLET 1 EACH PO (16:56)
[2020-04-08 20:00] VITALS: BP 131/72; PULSE 84; RESP 18; TEMP 37.5; O2SAT 97
[2020-04-08 20:15] VITALS: PULSE 87; RESP 16; O2SAT 97
--- NOTE | 2020-04-08 21:16 | PC.NURSE ---
Pt sleepy and lethargic at start of this shift. States she didn't sleep last night and was catching up! CPAP initiated while patient asleep, O2 Sats 95% without O2 bleedin. While awake, O2 @ 2-3L to maintain Sats >90%. VSS, CMS to L upper and lower extremities intact. IV to R forearm @ 100ml/hr continued, L arm IV SL. Page to draining clear urine. Ice bags to back and l hip for comfort. Encouraged to use IS q 1 hr while awake.
[2020-04-08] MEDS: TRAMADOL 50 MG TABLET PO (23:57)
[2020-04-09] VITALS (23 sets, daily range): BP systolic 99–136; BP diastolic 55–104; PULSE 75–105; RESP 10–24; TEMP 36.4–37.1; O2SAT 92–100
--- NOTE | 2020-04-09 | DI.CT.S_ITS ---
PROCEDURE: CT ANGIO HEAD AND NECK INDICATIONS: code stroke TECHNIQUE: Pre-contrast 4.5 mm thick sections acquired from the foramen magnum to the vertex. After the administration of intravenous contrast, 1 mm thick sections acquired from the aortic arch through the [place] of Fuentes. Post-contrast 4.5 mm thick sections then re-acquired from the foramen magnum to the vertex. 3-dimensional xwvrria-vjwewykeg-qahpcaiymf (MIP) and/or volume rendering reformats were acquired of the central intracranial vasculature and neck separately. COMPARISON: None. FINDINGS: Image quality: Excellent. BRAIN: CSF spaces: Ventricles are normal in size and shape. Basal cisterns are patent. No extra-axial fluid collections. Brain: No midline shift. No intracranial bleeds or masses. Nagel-white matter interface appears intact. There is mild diffuse atrophy. Skull and face: Calvarium and facial bones appear intact, without suspicious lesions. Orbits appear normal. Sinuses: Sinuses and mastoids are clear. HEAD CT ANGIOGRAPHY: Anterior circulation: The intracranial internal carotid arteries are severely calcified. The right internal carotid artery is occluded below the skull and reconstitutes at the base of the skull. The flow within the paired anterior cerebral arteries is normal and symmetric. The flow within the middle cerebral arteries is normal and symmetric. The anterior communicating artery is seen. No aneurysms are seen. Posterior circulation: The vertebral arteries at the level of the foramen magnum demonstrate atherosclerotic disease, with a 60 percent stenosis on the right and a 70 percent stenosis on the left but join to form a normal appearing basilar artery. The right posterior cerebral artery has a origin. The left posterior cerebral artery originates from the basilar artery. Flow within the posterior cerebral arteries is normal and symmetric. No aneurysms are seen. NECK CT ANGIOGRAPHY: Carotid system: The great vessels demonstrate a conventional anatomy as they arise from the aortic arch. The origins of the common carotid arteries appear patent. The common carotid arteries demonstrate normal caliber and courses. The right internal carotid artery is occluded just above the bifurcation. The left internal carotid artery has a tortuous course but is patent. Posterior circulation: The origins of the vertebral arteries both appear widely patent. The more superior extracranial portions of both vertebral arteries also demonstrate normal courses and calibers. They join to form a normal appearing basilar artery. Soft tissues: Visualized neck soft tissues demonstrate no suspicious abnormalities. Bones: No suspicious bony lesions. Visualized cervical spine appears normally aligned. IMPRESSION: 1. Occlusion of the right ICA. 2. 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 3. The MCAs, ACAs, and production engineer are patent. Any quantitative measurements of stenosis were performed using NASCET criteria. Dictated by: Jason Angulo M.D. on 04/09/2020 at 21:56 Approved by: Jason Angulo M.D. on 04/09/2020 at 22:14
[2020-04-09] MEDS: OXYCODONE IR 5 MG TABLET PO ×2 (04:46→16:30)
[2020-04-09 05:36] LABS: Add Manual Diff / Slide Review NO; Basophils Absolute Auto 0 /uL (0-100); Basophils Percent Auto 0.4 % (0-2); Eosinophils Absolute Auto 300 /uL (0-450); Eosinophils Percent Auto 3.9 % (2-4); INR 1.4 (0.9-1.3); Lymphocytes Absolute Auto 900 /uL (1100-4500); Lymphocytes Percent Auto 10.6 % (25-40); Mean Corpuscular HGB Conc 33.4 % (30-36); Mean Corpuscular Volume 86.9 fL (80-100); Monocytes Absolute Auto 1100 /uL (0-900); Monocytes Percent Auto 13.5 % (3-14); Neutrophils Absolute Auto 5800 /uL (1500-7000); Neutrophils Percent Auto 71.6 % (50-75); Platelet Count 168 X10^3/uL (150-400); Prothrombin Time 16.1 SECONDS (10.1-12.7); Red Cell Distribution Width 14.2 % (11.6-14.8); White Blood Cell Count 8.2 X10^3/uL (4.5-11.0)
[2020-04-09] MEDS: PANTOPRAZOLE 40 MG TABLET PO (06:19)
--- NOTE | 2020-04-09 07:07 | DI.RAD.S_ITS ---
PROCEDURE: XR PELVIS 1-2V INDICATIONS: intra op left hip TECHNIQUE: Intra-operative view of the pelvis and hip acquired. COMPARISON: [facility], RODRIGUEZ, XR FEMUR LT MIN 2V, 04/07/2020, 19:10. [facility], RODRIGUEZ, XR HIP W PEL IF DONE LT 2V, 04/07/2020, 19:10. FINDINGS: Bones: Intraoperative devices prior to placement of left hip arthroplasty prostheses are in expected positions. No fractures or suspicious bony lesions. Prior right hip total arthroplasty. Soft tissues: Overlying surgical retractors are present, along with other intraoperative changes. IMPRESSION: Expected position of the upper left hip temporary prosthesis. Dictated by: Eric Voss M.D. on 04/09/2020 at 10:03 Approved by: Eric Voss M.D. on 04/09/2020 at 10:04
--- NOTE | 2020-04-09 08:07 | PM.PREOP ---
Pre-operative Note COVID-19 COVID-19 status: Negative Interval Note History & Physical reviewed/Exam performed by Physician: Yes Changes to H&P: No
[2020-04-09] MEDS: LACTATED RINGERS 1,000 ML 42 ML IV ×2 (08:20→11:17)
[2020-04-09] MEDS: CEFAZOLIN 2 GM/100 ML FROZ.PIGGY IV ×2 (08:47→16:31)
[2020-04-09] MEDS: TRANEXAMIC ACID 1,000 MG VIAL 2000 MG INJ ×2 (08:56→11:18)
--- NOTE | 2020-04-09 09:04 | SUR.OPER ---
Lateral on padded OR bed. Gel axillary roll. Arms secured on padded armboard with pillow supporting top arm. Padded hip positioner braces x4 - anterior and posterior chest and pelvis. Additional gel pad used anterior pelvis. Gel pad under bottom leg from knee to foot and secured with tape over sheet.
[2020-04-09] MEDS: BUPIVACAINE LIPOSOME 266 MG/20 ML VIAL INJ (09:11)
--- NOTE | 2020-04-09 09:29 | PC.NURSE ---
Addendum entered by Lupis Chu R.N. 04/09/20 14:41: Pt remains on 2L bled into home CPAP when asleep, Denies pain. Adductor pillow Alert, sipping water, declines any snack at present. Resting quietly with even respirations. Addendum entered by Lupis Chu R.N. 04/09/20 13:21: Pt returned to floor from PACU 1230, Drowsy. Wakes to voice. Hard cast to LUE, Dorsal hand noted with more brusing, fingers slightly puffy, able to move all and MEDICAL CODING SPECIALIST brisk to all nail beds. Pt's home CPAP placed due to desat to high 80''s. Eventually bled in 1-2 L to keep O2 above 92. Lungs are dim to bases. Aquacell to Left hip CDI. moving both feet, SCDs placed, and IVF infusing@ 100. Pt denies pain. Daughter Aliya at bedside and updated on care. Original Note: Am shift Pt has been NPO since midnight. Tele remains in place, Afib CVR. Daughter arrived to accompany Pt to OR. Report given to Christie NULL.
--- NOTE | 2020-04-09 11:56 | DI.RAD.S_ITS ---
PROCEDURE: XR PELVIS 1-2V INDICATIONS: postop TECHNIQUE: 1 view of the lower pelvis acquired. [facility] 2V, [facility]07/2020, 19:10[facility], 04/09/2020, 10:01. FINDINGS: Bones: Patient is status post left hip arthroplasty, with hardware components in expected positions. The hip joint appears congruent. The visualized bony structures appear intact. Prior right total hip arthroplasty. Soft tissues: Overlying postoperative changes are noted. No suspicious soft tissue densities. IMPRESSION: Expected postoperative appearance of the left total hip arthroplasty. Dictated by: Eric Voss M.D. on 04/09/2020 at 11:40 Approved by: Eric Voss M.D. on 04/09/2020 at 11:41
--- NOTE | 2020-04-09 12:34 | P.OP_ITS ---
Operative Date/Time/Diagnoses Date of procedure: 04/09/20 Time of procedure: 08:30 Pre-op diagnosis: 1. Left femoral neck fracture 2. Left distal radius fracture Post-op diagnosis: same Procedure & Clinicians Procedure: 1. Hemiarthroplasty left femoral neck fracture. CPT code 41782 2. Closed treatment left distal radius fracture and casting CPT code 87187-68 Same procedure as scheduled: Yes Indications: Patient is a 79-year-old female that fell while checking her mail and sustained a displaced left femoral neck fracture as well as a nondisplaced intra-articular left wrist fracture. She is indicated for cemented left hemiarthroplasty for treatment of her left femoral neck fracture to allow early mobilization and stability. The risks benefits and alternatives to the procedure were discussed with the patient in detail. She has elected to proceed. She has a Oriental orthodox and refuses blood products. Discussed the use of transischemic acid and iron. Questions in the surgery were also discussed with the patient's daughter Aliya. The risks and benefits of the procedure have been discussed with the patient even opportunity to ask questions. The risks of surgery include but are not limited to infection, persistence of pain, hardware complication, damage to nerves and blood vessels, posttraumatic arthritis, DVT, PE, cardiopulmonary complications and . The patient expressed a thorough understanding of the risks and benefits of surgery and has elected to proceed. Consent was signed. Surgeon: Elana De Leon Inverted Block Operator: Chirag Mckay Anesthesia Type: General and Local Operative Notes Findings: Displaced left femoral neck fracture Nondisplaced left wrist fracture Closure Type: primary Specimen(s): none sent Prosthetic devices, grafts, tissues, transplants, or devices: Nuñez and Nephew Synergy size 12 cemented stem Nuñez and nephew 0 neck Tandem unipolar 47 head Small cement restrictor and 10 mm centralizer Estimated Blood Loss (mL): 200 Blood products transfused: none Tourniquet time (min): 0 Procedure in detail: Hemiarthroplasty for femoral neck fracture CPT code 53035. Patient was seen in the preoperative area the site of surgery was marked and informed consent confirmed. The patient was brought back to the operating room by the anesthesia team. Patient was positioned supine on the operative table. General anesthetic was administered. Patient was then moved into the lateral position. The hip exterminator helper termite positioner pads were then placed. A well-padded axillary roll was placed and the arms were appropriately positioned. The affe cted lower extremity was prepped and draped from the ankle to the iliac crest with ChloraPrep in the standard fashion sterile drapes were placed. Formal time-out procedure was performed confirming the patient's side and site of surgery, presence of informed consent, administration of appropriate preoperative antibiotics. 1 g of TXA was administered 10 minutes prior to incision the final g of TXA was administered at the time of closing. Hip was approached through a standard posterior approach. Dissection was carried down through the skin and subcutaneous tissues sharply through the skin and then with the Bovie through the subcutaneous tissues. The fascia victor hugo was exposed and opened. Fascia was opened using the deep knife and the gluteus bel was spread with finger retraction. The Charnley retractor was placed. The inflamed bursa was resected. The piriformis was then identified. A Cobra retractor was placed under the gluteus medius to help expose the external rotators. The piriformis and short external rotators were tagged with a 2 FiberWire and divided off the trochanter. These were then retracted posteriorly to protect sciatic nerve. The femur was then flexed and internally rotated to present the femoral neck and the fracture. A corkscrew and a Ward were used to remove the femoral head from the acetabulum. This was measured to fit a 47 mm head. Next the femur was presented. A clean-up neck cut was made in a minimal fashion. Attention was then turned to the femur. The canal was opened with a box cutting osteotome. This followed by the canal finer and a lateralizing Reamer. The tapered reamers were then used up to a size 12. Then broaching was sequentially done up to a size 12. Trial components were placed. With the 47 head and a 0 neck. The patient was stable in the position of sleep, squatting and could be put through a range of motion with 70? of internal rotation without dislocation. This was felt to be appropriate. An intraop a AP pelvis x-ray was obtained to assess component position. Final components were then selected. The final stem was a size 12. Femoral canal was prepared . The distal small restrictor was placed approximately 2 cm distal to the end of the planned implant. The bone was meticulously cleaned with pulse lavage. Canal was then packed with gauze. Two packages of cement were mixed and carefully pressurized into the femoral canal. The femoral component was then placed without difficulty. This was held in place until the cement hardened. The repeat trial reduction showed good range of motion and stability. The final head and neck were then carefully placed. This was 47 mm head and 0 neck. The wound was irrigated. The capsule and muscular flap was repaired with the 2. Ethibond. Next the short external rotators were repaired to the greater trochanter through drill holes in the greater trochanter using the 2.5 drill and a Hewson suture Passer. These were tied with the leg in abduction. The wound was then irrigated again. Exparel was injected. The fascia victor hugo was closed with 0 Vicryl and the subcutaneous layer was closed with 2-0 Vicryl and the skin with eden. An Aquacel dressing was placed. An abduction pillow was placed for protection. The drapes removed and the patient was taken to the recovery room in good condition. There no immediate complications from this procedure. All counts were correct. Postoperative AP pelvis x-ray was obtained in the PACU showed appropriate alignment of the cemented hip hemiarthroplasty with no evidence of fracture. Complications: none Post-operative Condition: stable Disposition: PACU Plan for aftercare: Weightbear as tolerated left lower extremity. Forearm weight-bearing on the left upper extremity. May use platform walker. Will work with physical therapy occupational therapy. Postoperative posterior hip precautions. Abduction pillow in bed. May restart her Eliquis tomorrow. Will recheck H&H tomorrow morning prior to this. Normal diet. 24 hours postoperative antibiotics.
--- NOTE | 2020-04-09 14:06 | CM.DPC ---
DCP continued: EMR reviewed: CM met with patient at the bedside and explained role. patient was drowsy and not able to participate with D/C planning at this time. patient not fully awake after Ortho Surgery today. CM department will follow up with patient tomorrow to work on D/C plan. PT and OT evaluations Pending. Patient is Independent at baseline. Marianna Nuñez RN
--- NOTE | 2020-04-09 14:47 | PT-IP ANOTE ---
Received PT orders and reviewed chart. Discussed pt with RN who states pt is too groggy to meaningfully participate with therapy at this hour. Will follow up in the morning for evaluation.
--- NOTE | 2020-04-09 14:50 | P.PN_ITS ---
Subjective Subjective Date Patient Seen: 04/09/20 Interval history: Rody Rodas is an 79-year-old female with a past medical history significant for hypertension, chronic atrial fibrillation on Eliquis, GERD, and ALVIN on CPAP who presented to the ED after sustaining a ground level fall with left wrist and hip pain and inability to ambulate. The patient lying in bed comfortably. She is slightly drowsy and recovering postoperatively. She denies pain. She denies headache, cough, shortness of breath, chest pain, abdominal pain, nausea, vomiting, fever, chills, dysuria, or diarrhea. She is voiding via Page catheter without difficulty. She has not yet had a bowel movement and a bowel regimen has been implemented. Exam Vital Signs (past 8 hours): - 04/09/20 11:51 04/09/20 11:56 04/09/20 12:01 Temperature 98 F Pulse Rate 91 H 83 81 Respiratory Rate 13 10 L 15 Blood Pressure 99/55 L 106/62 119/70 Pulse Oximetry 93 94 97 04/09/20 12:10 04/09/20 12:19 04/09/20 12:30 Temperature 98.7 F 98.4 F Pulse Rate 75 92 H 104 H Respiratory Rate 13 15 18 Blood Pressure 131/58 L 124/61 132/72 Pulse Oximetry 97 97 92 04/09/20 12:45 04/09/20 13:15 04/09/20 14:24 Temperature 98.4 F 97.8 F 98.2 F Pulse Rate 86 95 H 95 H Respiratory Rate 14 16 14 Blood Pressure 128/71 122/71 122/78 Pulse Oximetry 94 95 95 Oxygen Delivery Method Nasal Cannula Oxygen Flow Rate 3 Narrative Exam Narrative: General: Elderly female lying in bed in no acute distress, well-developed, well- nourished, slightly drowsy but otherwise appropriately interactive. HEENT: Normocephalic, atraumatic. External ears without defect. Pupils equal, round, and reactive to light. Anicteric sclerae, moist conjunctivae, and no lid lag. Oropharynx free of erythema and cobble stoning with moist mucosa. Neck: Supple with full range of motion. No lymphadenopathy or thyromegaly. Cardiovascular: Irregularly irregular without murmurs, rubs, or gallops appreciated Pulmonary: Clear to auscultation bilaterally without crackles, wheezes, or rhonchi. Normal respiratory effort with no use of accessory muscles. Abdomen: Soft, bowel sounds present, nontender, nondistended. No hepatospl enomegaly or masses appreciated. Extremities: No clubbing, cyanosis, or edema. Left hip with dressing in place C/D/I without surrounding erythema or edema. Left wrist forearm with hard cast in place mild bruising of dorsum of hand. Skin: Normal temperature, turgor, and texture; no rash, ulcers, or subcutaneous nodules appreciated. Neurological: Cranial nerves grossly intact. Psychiatric: Normal mood and affect. Alert and oriented to person, place, and time. Objective Labs Result Diagrams: 04/09/20 04:45 04/08/20 04:35 Labs: Laboratory Results - last 24 hr 04/09/20 04/09/20 04:45 04:45 WBC 8.2 RBC 3.80 L Hgb 11.0 L Hct 33.0 L MCV 86.9 MCH 29.0 MCHC 33.4 RDW 14.2 Plt Count 168 Neut % (Auto) 71.6 Lymph % (Auto) 10.6 L [place] % (Auto) 13.5 Eos % (Auto) 3.9 Baso % (Auto) 0.4 Neut # (Auto) 5800 Lymph # (Auto) 900 L [place] # (Auto) 1100 H Eos # (Auto) 300 Baso # (Auto) 0 PT 16.1 H INR 1.4 H PFSH Medical History Atrial fibrillation Fatigue GERD (gastroesophageal reflux disease) Obstructive sleep apnea syndrome (~10/2019) Snoring Surgical History History of cataract removal with insertion of prosthetic lens History of right hip replacement Family History Mother Restless legs syndrome (RLS) Hypertension Heart disease Father Hypertension Heart disease Family/Other Restless legs syndrome (RLS) Obesity Hypertension Family/Other Snoring Obstructive sleep apnea Depression Alcohol abuse Substance abuse Anxiety Bipolar disorder Family/Other Obesity Social History marital status: number of children: 5 household members: family lives independently: Yes caregiver/support person: No housing: house Smoking Status: Never smoker alcohol intake: current substance use type: does not use Assessment & Plan Assessment & Plan narrative: Rody Rodas is an 79-year-old female with a past medical history significant for hypertension, chronic atrial fibrillation on Eliquis, GERD, and ALVIN on CPAP who presented to the ED after sustaining a ground level fall with left wrist and hip pain and inability to ambulate. 1. Acute pathological left femoral neck fracture, present on admission. Active. -Patient presented after sustaining ground level fall with left hip pain and inability to ambulate. -Hip x-ray demonstrated left impacted femoral neck fracture. -Held home Eliquis. -Consulted orthopedic surgery, Dr. De Leon, who performed left hip hemiarthroplasty today. Continue postoperative management, pain control and VTE prophylaxis per Orthopedic surgery. -Continue acetaminophen 975 mg three times daily, tramadol 50 mg 4 times daily as needed for moderate pain, and oxycodone 5 mg every 3 hours or morphine 2 mg IV every 4 hours as needed for severe break through pain. -Continue calcium and vitamin D3. Patient will need to be treated for osteoporosis as an outpatient per PCP or orthopedic surgery. 2. Acute pathological left wrist fracture, present on admission. Active. -Left wrist x-ray demonstrated non-displaced comminuted distal radius fracture extending to articular surface and triquetral fracture. -Consulted orthopedic surgery, Dr. De Leon, who performed close treatment and apply hard cast. Orthopedic surgery plans to monitor serial x-rays to assure proper alignment. Cast will allow weight-bearing on the forearm and the use of a forearm walker. 3. Acute blood loss anemia, present on admission. Active. -Initial hemoglobin 11.6. Baseline hemoglobin 13-14 in 07/2018. Hemoglobin trending down now 11.0. Patient is a Adventist and refuses blood transfusion. Orthopedic surgery plans to use TXA and started ferrous sulfate 325 mg daily. -Continue to monitor H&H daily. 4. Chronic atrial fibrillation, chronic, present on admission. Stable. -Held home Eliquis. -Continue home diltiazem 360 mg daily for rate control. -Continue to monitor closely on telemetry. 5. Hypertension, chronic, present on admission. Stable. -Continue home diltiazem 360 mg daily. Held valsartan 80 mg daily today to avoid intra and postoperative hypotension and may restart tomorrow. 6. GERD, chronic, present on admission. Stable. -Continue equivalent of home PPI with pantoprazole 40 mg daily. 7. ALVIN on CPAP, present on admission. Stable. -Continue home CPAP per RT protocol. Code Status: Full code VTE prophylaxis: SCDs, held chemical prophylaxis with home Eliquis pending surgical repair of left hip Disposition: Patient remains hospitalized pending surgical repair of left hip. Quality VTE Deep Vein Thrombosis/Pulmonary Embolism Present on Admission: No
[2020-04-09] MEDS: ACETAMINOPHEN 325 MG TABLET 975 MG PO (15:35)
[2020-04-09] MEDS: CALCIUM CARB/VIT D3 500/200 TABLET 1 EACH PO (16:30)
--- NOTE | 2020-04-09 17:25 | SUR.PHASEI ---
Late entry: Stable PACU stay, denied pain tolerated ice chips. Pt transported up to room on room air, left with TENNILLE Michelle and left in stable condition.
[2020-04-09] MEDS: NALOXONE 0.4 MG/ML VIAL 0.2 MG IV (20:46)
--- NOTE | 2020-04-09 20:57 | DI.CT.S_ITS ---
PROCEDURE: CT STROKE COMPARISON: None. INDICATIONS: new cva FINDINGS: Image quality: Excellent. CSF spaces: Basal cisterns are patent. No extra-axial fluid collections. Ventricles are normal in size and shape. Brain: No midline shift. No intracranial masses or hemorrhage. Nagel-white matter interface is normal. There is diffuse atrophy. Subcortical and periventricular white matter changes are consistent with microvascular ischemic disease. Skull and face: Calvarium and visualized facial bones are intact, without suspicious lesions. The orbits and retrobulbar are soft tissues are normal. The soft tissues are normal. Sinuses: Visualized sinuses and mastoids are clear. IMPRESSION: 1. No acute intracranial abnormality. 2. Microvascular ischemic disease. Dictated by: Jason Angulo M.D. on 04/09/2020 at 21:49 Approved by: Jason Angulo M.D. on 04/09/2020 at 21:52
[2020-04-09 21:17] LABS: INR 1.4 (0.9-1.3); Prothrombin Time 15.8 SECONDS (10.1-12.7)
--- NOTE | 2020-04-09 21:21 | PM.PN.1 ---
Subjective Subjective Date Patient Seen: 04/09/20 Time Patient Seen: 21:22 Interval history: STROKE CODE CALLED AT 2109. Patient's initial NIH score was 6 she was alert and oriented but having difficulty speaking. She is status post left hip fracture repair apparently done this morning and was taken off apixaban 2 days ago in preparation for the surgery. She was due to resume apixaban on 04/10 in the morning. Noted to be last normal self at approximately 1930. Exam Vital Signs (past 8 hours): - 04/09/20 14:24 04/09/20 15:00 04/09/20 19:30 Temperature 98.2 F 97.8 F 97.6 F Pulse Rate 95 H 88 84 Respiratory Rate 14 20 18 Blood Pressure 122/78 130/80 129/79 Pulse Oximetry 95 93 94 04/09/20 21:19 Temperature Pulse Rate 105 H Respiratory Rate 16 Blood Pressure Pulse Oximetry 100 Oxygen Delivery Method Nasal Cannula Oxygen Flow Rate 3 Objective Labs Result Diagrams: 04/09/20 21:00 04/09/20 21:00 Labs: Laboratory Results - last 24 hr 04/09/20 04/09/20 04:45 04:45 WBC 8.2 RBC 3.80 L Hgb 11.0 L Hct 33.0 L MCV 86.9 MCH 29.0 MCHC 33.4 RDW 14.2 Plt Count 168 Neut % (Auto) 71.6 Lymph % (Auto) 10.6 L [place] % (Auto) 13.5 Eos % (Auto) 3.9 Baso % (Auto) 0.4 Neut # (Auto) 5800 Lymph # (Auto) 900 L [place] # (Auto) 1100 H Eos # (Auto) 300 Baso # (Auto) 0 PT 16.1 H INR 1.4 H PFSH Medical History Atrial fibrillation Fatigue GERD (gastroesophageal reflux disease) Obstructive sleep apnea syndrome (~10/2019) Snoring Surgical History History of cataract removal with insertion of prosthetic lens History of right hip replacement Family History Mother Restless legs syndrome (RLS) Hypertension Heart disease Father Hypertension Heart disease Family/Other Restless legs syndrome (RLS) Obesity Hypertension Family/Other Snoring Obstructive sleep apnea Depression Alcohol abuse Substance abuse Anxiety Bipolar disorder Family/Other Obesity Social History marital status: number of children: 5 household members: family lives independently: Yes caregiver/support person: No housing: house Smoking Status: Never smoker alcohol intake: current substance use type: does not use Assessment & Plan COVID-19 COVID-19 status: Negative Result date/Date tested (Pos, Neg/Pending): 04/07/20 Time Spent With Patient Time with patient: Greater than 35 minutes (Critical care time: 2 hours 30 minutes.) Quality VTE Deep Vein Thrombosis/Pulmonary Embolism Present on Admission: No Scores NIHSS Level of Conciousness: Alert, keenly responsive Ask month/age: Answers both questions correctly. Open/close eyes, close hand: Performs one task correctly Best gaze horizontal: Forced deviation or total gaze paresis not overcome Visual [place]: Complete hemianopia Facial palsy: Minor paralysis, flattened nasolabial fold, asymmetry on smiling Left arm drift: Some effort against gravity, cannot maintain, drifts down to bed (Fractured left wrist in a cast) Right arm drift: Ambutation, joint fusion (s/p left hip fx repair, on hip precautions) Left leg drift: Ambutation, joint fusion Right leg drift: Ambutation, joint fusion (s/p left hip fx repair, on hip precautions) Limb ataxia: Amputation, joint fusion Sensory on face/arms/legs: Mild to moderate sensory loss, can tell touch Best language: Severe aphasia, not much is understood, fragmented (Moderate) Dysarthria: Mild to mod,some slurring Extinction or inattention: Profound thomas-inattention. Does not recognize own hand, one side Total NIH Stroke scale score: 14
[2020-04-09 21:50] LABS: Add Manual Diff / Slide Review NO; Basophils Absolute Auto 0 /uL (0-100); Basophils Percent Auto 0.1 % (0-2); Eosinophils Absolute Auto 0 /uL (0-450); Eosinophils Percent Auto 0.1 % (2-4); Hemoglobin 10.2 g/dL (12.0-16.0); Lymphocytes Absolute Auto 600 /uL (1100-4500); Lymphocytes Percent Auto 7.6 % (25-40); Mean Corpuscular HGB Conc 33.1 % (30-36); Mean Corpuscular Hemoglobin 28.8 PG (26-34); Mean Corpuscular Volume 87.2 fL (80-100); Monocytes Absolute Auto 400 /uL (0-900); Monocytes Percent Auto 5.9 % (3-14); Neutrophils Absolute Auto 6600 /uL (1500-7000); Neutrophils Percent Auto 86.3 % (50-75); Platelet Count 166 X10^3/uL (150-400); Red Blood Cell Count 3.55 X10^6/uL (4.0-5.2); Red Cell Distribution Width 13.7 % (11.6-14.8); White Blood Cell Count 7.6 X10^3/uL (4.5-11.0)
[2020-04-09 21:54] LABS: Lactate (Lactic Acid) 2.4 mmol/L (0.7-2.1)
[2020-04-09 21:55] LABS: Blood Urea Nitrogen 22 mg/dL (7-17); Carbon Dioxide 29 mmol/L (22-32); Chloride 100 mmol/L (98-107); Creatine Kinase 669 U/L (30-135); Estimated Glomerular Filt Rate > 60.0 mL/min (>60); Glucose 196 mg/dL (80-110); HEMOLYSIS < 15 (0-50); Potassium 4.6 mmol/L (3.4-5.1); Sodium 132 mmol/L (137-145)
--- NOTE | 2020-04-09 22:00 | PC.NURSE ---
2049 walked into patients room to give 2100 meds and pt unarousable. Pupils pinpoint, 4.5 hours since last oxycodone. Narcan 0.2 administered. pt woke with obvious l facial droop, slurred speech and not moving l arm. Ignoring left side completely. Code Stroke called, patient taken to CT for imaging. NIHSS score 15. Telestroke camera in the room and MD assessing patient. Attempted to contact family, messages left to contact [facility]. Waiting for CT and CTA results.
[2020-04-09 22:07] LABS: Troponin I 0.014 ng/mL (0.01-0.034)
[2020-04-09 22:10] LABS: CKMB % Relative Index 1.4 % (1.5-5.0); Creatine Kinase MB 9.64 ng/mL (<2.37); D Dimer 704 ng/mL (<230)
--- NOTE | 2020-04-09 22:17 | P.PN_ITS ---
Subjective Subjective Date Patient Seen: 04/09/20 Time Patient Seen: 17:00 Interval history: POD #0 L hip cemented hemiarthroplasty for L femoral neck fracture closed treatment L wrist fracture Seen on floor at 1700 alert, answers questions appropriately sitting up in bed wathcing TV tired, partially consumed dinner at bedside abd pillow in place demonstrated DF/PF bilateral ankles. L wrist cast in place, wiggles fingers. pain controlled Addendum: notified by hospitalist Dr. Christianson approx 9:30 pm. Pt was found with symptoms stroke VSS but aphasia, facial droop, left sided weakness. awaiting stroke team recommendations. plan: 1. stroke- appreciate hospitalists/ stroke team management 2. L hip. WBAT. 2 doses postop abx. from ortho stand point ok to restart elliquis tomorrow. H/H stable tonight. any other anticoag recs or/for stroke protocol will have priority can be implented as indicated. 3. L wrist fx. nonop tx in cast. may forearm WB on platform walker. 4. Pt is Jehoviah witness-- no blood products Exam Vital Signs (past 8 hours): - 04/09/20 14:24 04/09/20 15:00 04/09/20 19:30 Temperature 98.2 F 97.8 F 97.6 F Pulse Rate 95 H 88 84 Respiratory Rate 14 20 18 Blood Pressure 122/78 130/80 129/79 Pulse Oximetry 95 93 94 04/09/20 21:19 04/09/20 21:40 Temperature Pulse Rate 105 H 85 Respiratory Rate 16 20 Blood Pressure 119/73 Pulse Oximetry 100 99 Oxygen Delivery Method Nasal Cannula Oxygen Flow Rate 2 Objective Labs Result Diagrams: 04/09/20 21:00 04/09/20 21:00 Labs: Laboratory Results - last 24 hr 04/09/20 04/09/20 04/09/20 04:45 04:45 21:00 WBC 8.2 RBC 3.80 L Hgb 11.0 L Hct 33.0 L MCV 86.9 MCH 29.0 MCHC 33.4 RDW 14.2 Plt Count 168 Neut % (Auto) 71.6 Lymph % (Auto) 10.6 L [place] % (Auto) 13.5 Eos % (Auto) 3.9 Baso % (Auto) 0.4 Neut # (Auto) 5800 Lymph # (Auto) 900 L [place] # (Auto) 1100 H Eos # (Auto) 300 Baso # (Auto) 0 PT 16.1 H 15.8 H INR 1.4 H 1.4 H D-Dimer Sodium Potassium Chloride Carbon Dioxide BUN Creatinine Estimated GFR BUN/Creatinine Ratio Glucose Lactate Calcium Total Creatine Kinase CK-MB (CK-2) CK-MB (CK-2) Rel Index Troponin I 04/09/20 04/09/20 04/09/20 21:00 21:00 21:00 WBC 7.6 RBC 3.55 L Hgb 10.2 L Hct 31.0 L MCV 87.2 MCH 28.8 MCHC 33.1 RDW 13.7 Plt Count 166 Neut % (Auto) 86.3 H Lymph % (Auto) 7.6 L [place] % (Auto) 5.9 Eos % (Auto) 0.1 L Baso % (Auto) 0.1 Neut # (Auto) 6600 Lymph # (Auto) 600 L [place] # (Auto) 400 Eos # (Auto) 0 Baso # (Auto) 0 PT Cancelled INR Cancelled D-Dimer 704 H Sodium 132 L Potassium 4.6 Chloride 100 Carbon Dioxide 29 BUN 22 H Creatinine 0.88 Estimated GFR > 60.0 BUN/Creatinine Ratio 25.0 H Glucose 196 H Lactate Calcium 9.0 Total Creatine Kinase 669 H CK-MB (CK-2) 9.64 H CK-MB (CK-2) Rel Index 1.4 L Troponin I 0.014 04/09/20 21:00 WBC RBC Hgb Hct MCV MCH MCHC RDW Plt Count Neut % (Auto) Lymph % (Auto) [place] % (Auto) Eos % (Auto) Baso % (Auto) Neut # (Auto) Lymph # (Auto) [place] # (Auto) Eos # (Auto) Baso # (Auto) PT INR D-Dimer Sodium Potassium Chloride Carbon Dioxide BUN Creatinine Estimated GFR BUN/Creatinine Ratio Glucose Lactate 2.4 H Calcium Total Creatine Kinase CK-MB (CK-2) CK-MB (CK-2) Rel Index Troponin I [facility] Medical History Atrial fibrillation Fatigue GERD (gastroesophageal reflux disease) Obstructive sleep apnea syndrome (~10/2019) Snoring Surgical History History of cataract removal with insertion of prosthetic lens History of right hip replacement Family History Mother Restless legs syndrome (RLS) Hypertension Heart disease Father Hypertension Heart disease Family/Other Restless legs syndrome (RLS) Obesity Hypertension Family/Other Snoring Obstructive sleep apnea Depression Alcohol abuse Substance abuse Anxiety Bipolar disorder Family/Other Obesity Social History marital status: number of children: 5 household members: family lives independently: Yes caregiver/support person: No housing: house Smoking Status: Never smoker alcohol intake: current substance use type: does not use Assessment & Plan Post-op Postoperative Procedures: Procedures Operation Date: 04/09/20 08:00 Actual Procedures Side Surgeon p Hip Hemiarthroplasty and casting left wrist fracture Left Elana De Leon MD Quality VTE Deep Vein Thrombosis/Pulmonary Embolism Present on Admission: No
--- NOTE | 2020-04-09 22:49 | PC.NURSE ---
Report Called to [facility] where pt will be transported for vascular evaluation and treatment.
--- NOTE | 2020-04-09 23:12 | P.DS_ITS ---
History of Present Illness History of Present Illness Chief complaint: at home fall Narrative: Rody Rodas is a pleasant 79 y.o. female with atrial fibrillation anticoagulated on eliquis and and essential hypertension was in her usual state of health when she went out to her mail box and tripped in the lawned area next to her driveway. She fell and sustained a fracture to her left hip and left wrist. She denies loosing consciousness, feeling dizzy prior to the fall. She denies hitting her head or having a headache. Denies shortness of breath, chest pain, nausea or vomiting, abdominal pain, dysurea, diarrhea or constipation. She is concerned about being able to return home. She and her younger sister having been living together for 40 years and her sister is currently undering surgery at [facility] for a small bowel obstruction. Xray of the left wrist found: Nondisplaced comminuted distal radius fracture extending to articular surface. Triquetral fracture seen on lateral view. Question nondisplaced scaphoid fracture. Xray of the left hip indicated an impacted left femoral neck fracture. She is afebrile, blood pressure is 162/101, heart rate 102, respiratory rate 16, oxygen saturation of 92% on room air, she weighs 73.5 kg with a BMI of 27.8. She is mildly anemic at 11.6 and 35.7 hemoglobin and hematocrit, PT/INR is 16.2 and 1.4 respectively, CBC is unremarkable, sodium was 136 BUN is 26 and a GFR estimated at 58.6, liver enzymes are within normal limits, and COVID-19 PCR was negative. She underwent left hip repair and hard casting of her left wrist today and was brought to the floor sometime prior to noon time. Discharge Providers Provider Date of admission: 04/07/20 20:10 Discharge Date: 04/09/20 Primary care physician: Jovana Solo MD Consults: 04/07/20 22:45 Consult to Physician Routine Comment: Consulting Provider: Elana De Leon Reason for consultation: left hip fx Has provider been notified: Yes 04/09/20 12:45 Consult to Discharge Planning Routine Comment: Consult to Physical Therapy Evaluate & Treat Comment: forearm weight bearing LUW (platform walker okay) Physician Instructions: post op LIZETH protocol Consult to Respiratory Therapy Evaluate & Treat Comment: Physician Instructions: Evaluate and treat 04/09/20 19:12 Consult to Occupational Therapy Evaluate & Treat Comment: Physician Instructions: Evaluate and treat 04/09/20 20:55 Consult to Discharge Planning Routine Comment: Consult to Occupational Therapy Evaluate & Treat Comment: Physician Instructions: Evaluate and treat Consult to Physical Therapy Evaluate & Treat Comment: Physician Instructions: Evaluate and Treat Consult to Speech Therapy Evaluate & Treat Comment: Physician Instructions: Evaluate and treat Discharge provider: SILVINA Montgomery Summary Hospital Course Discharge Diagnosis: Left wrist and hip fracture Hospital Course: Patient underwent L hip cemented hemiarthroplasty for L femoral neck fracture closed treatment L wrist fracture on 04/09/2020. She was initially admitted to the hospitalist service on 04/07 2020 to hold her apixaban an effort to reverse her anticoagulation for atrial fibrillation. On POD#1 STROKE CODE CALLED AT 2109. Patient's initial NIH score was 6 she was alert and oriented but having difficulty speaking. She is status post left hip fracture repair apparently done this morning and was taken off apixaban 2 days ago in preparation for the surgery. She was due to resume apixaban on 04/10 in the morning. She was noted to be last normal self at approximately 1930. Initial NIH scale done at 2109 was 6, one hour later after arriving back from CT, her NIH scale increased to 16. CT of the head and CT angio were ordered. [facility] called and we discussed the patient as she was being wheeled out to scanner. When she returned she was quite somnolent and not really responding to the tele stroke provider speaking to her. It appeared that she was not even able to see out of her right side when prior to going into the scanner she had left-sided thomas- neglect and a fixed medial gaze of her left eye. Discussed the case with the tele stroke provider Dr. Rosales and the patient is not a candidate for tPA due to her recent surgery. 2015: CT angio report indicates complete occlusion of the right ICA. 2019: Discussed results with tele Stroke Service and they will contact [facility] Medical endovascular service to see if they will accept the patient. Consent for transport obtained by her younger son, contact information for her other son who is her DPOA was provided to [facility]. 0: Received call from Dr. Huddleston, [facility] neurohospitalist and she accepts the patient in transfer. Patient to be transferred via [facility] as they an ticipate she is going to go into emergency surgery. Exam Vital Signs (past 8 hours): - 04/09/20 19:30 04/09/20 21:19 04/09/20 21:33 Temperature 97.6 F Pulse Rate 84 105 H 92 H Respiratory Rate 18 16 Blood Pressure 129/79 119/73 Pulse Oximetry 94 100 98 04/09/20 21:40 04/09/20 22:02 04/09/20 22:15 Temperature Pulse Rate 85 77 Respiratory Rate 20 Blood Pressure 119/73 112/72 114/78 Pulse Oximetry 99 99 96 04/09/20 22:38 04/09/20 22:45 Temperature Pulse Rate 85 85 Respiratory Rate 16 16 Blood Pressure 133/76 136/104 H Pulse Oximetry 100 99 Oxygen Delivery Method Nasal Cannula Oxygen Flow Rate 2 Narrative Exam Narrative: General: Arousable lethargic 79-year-old female initially speaking but not speaking at this time. Neck: Does not appear to be able to rotate voluntarely, no JVD noted Respirations: Diminished breath sounds but do not auscultate any rhonchi CV: Irregularly irregular patient has a history of atrial fibrillation Abd: soft, non-tender, normoactive BTs Skin: no lesions or rashes, dry and intact Neuro: Alert and oriented X 3 w/with multiple facial deficits and inability to maintain elevation of her left upper extremity. Speech is garbled. Extremities: Patient is on hip precautions and her upper left extremity is immobilized in a wrist cast Psyche: normal mood and affect. Objective Labs Result Diagrams: 04/09/20 21:00 04/09/20 21:00 Labs: Laboratory Results - last 24 hr 04/09/20 04/09/20 04/09/20 04:45 04:45 21:00 WBC 8.2 RBC 3.80 L Hgb 11.0 L Hct 33.0 L MCV 86.9 MCH 29.0 MCHC 33.4 RDW 14.2 Plt Count 168 Neut % (Auto) 71.6 Lymph % (Auto) 10.6 L [place] % (Auto) 13.5 Eos % (Auto) 3.9 Baso % (Auto) 0.4 Neut # (Auto) 5800 Lymph # (Auto) 900 L [place] # (Auto) 1100 H Eos # (Auto) 300 Baso # (Auto) 0 PT 16.1 H 15.8 H INR 1.4 H 1.4 H D-Dimer Sodium Potassium Chloride Carbon Dioxide BUN Creatinine Estimated GFR BUN/Creatinine Ratio Glucose Lactate Calcium Total Creatine Kinase CK-MB (CK-2) CK-MB (CK-2) Rel Index Troponin I 04/09/20 04/09/20 04/09/20 21:00 21:00 21:00 WBC 7.6 RBC 3.55 L Hgb 10.2 L Hct 31.0 L MCV 87.2 MCH 28.8 MCHC 33.1 RDW 13.7 Plt Count 166 Neut % (Auto) 86.3 H Lymph % (Auto) 7.6 L [place] % (Auto) 5.9 Eos % (Auto) 0.1 L Baso % (Auto) 0.1 Neut # (Auto) 6600 Lymph # (Auto) 600 L [place] # (Auto) 400 Eos # (Auto) 0 Baso # (Auto) 0 PT Cancelled INR Cancelled D-Dimer 704 H Sodium 132 L Potassium 4.6 Chloride 100 Carbon Dioxide 29 BUN 22 H Creatinine 0.88 Estimated GFR > 60.0 BUN/Creatinine Ratio 25.0 H Glucose 196 H Lactate Calcium 9.0 Total Creatine Kinase 669 H CK-MB (CK-2) 9.64 H CK-MB (CK-2) Rel Index 1.4 L Troponin I 0.014 04/09/20 21:00 WBC RBC Hgb Hct MCV MCH MCHC RDW Plt Count Neut % (Auto) Lymph % (Auto) [place] % (Auto) Eos % (Auto) Baso % (Auto) Neut # (Auto) Lymph # (Auto) [place] # (Auto) Eos # (Auto) Baso # (Auto) PT INR D-Dimer Sodium Potassium Chloride Carbon Dioxide BUN Creatinine Estimated GFR BUN/Creatinine Ratio Glucose Lactate 2.4 H Calcium Total Creatine Kinase CK-MB (CK-2) CK-MB (CK-2) Rel Index Troponin I [facility] Medical History Atrial fibrillation Fatigue GERD (gastroesophageal reflux disease) Obstructive sleep apnea syndrome (~10/2019) Snoring Surgical History History of cataract removal with insertion of prosthetic lens History of right hip replacement Family History Mother Restless legs syndrome (RLS) Hypertension Heart disease Father Hypertension Heart disease Family/Other Restless legs syndrome (RLS) Obesity Hypertension Family/Other Snoring Obstructive sleep apnea Depression Alcohol abuse Substance abuse Anxiety Bipolar disorder Family/Other Obesity Social History marital status: number of children: 5 household members: family lives independently: Yes caregiver/support person: No housing: house Smoking Status: Never smoker alcohol intake: current substance use type: does not use Discharge Assessment & Plan Assessment and Plan Assessment: 1. 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 Status post pod 0 left hip arthroplasty and fracture repair, left wrist fracture hard casting 3. Atrial fibrillation normally anticoagulated on apixaban Plan of Treatment: Rody Rodas is being transferred to [facility] for embolectomy of a completely occluded right internal carotid artery. She was assessed by [facility] and they were able to facilitate having Neuro Interventional surgical team to assess the patient for clot removal. Dr. Huddleston neuro hospitalist is the accepting provider. Patient will be life flighted to [facility] enter as the procedure is an emergent one. Discharge Plan Discharge Plan Other facility: [facility] Under care of provider: Dr. Huddleston Provider Discharge Comment: Patient will be life flighted to [facility] as time is of the essence to for the emergent intervention. Discharge orders & Medications Discharge Orders: Discharge (Order); Ordered 04/09/20 Ordered By: Shellie Christianson Prescriptions: No Action lansoprazole 15 MG capsule,delayed release(DR/EC) 15 mg PO QDAY Qty: 0 RF: 0 Eliquis 5 MG tablet 5 mg PO BID Qty: 180 RF: 3 diltiazem HCl 360 MG capsule,extended release 24 hr 360 mg PO QDAY Qty: 90 RF: 3 valsartan 80 mg Tablet 80 mg PO DAILY RF: 0 Cranberry Plus Vitamin C 140-100 mg Capsule 1 cap PO PRN PRN (Reason: uti ) RF: 0 Calcium Citrate + D with Mag [id number] Tablet 1 tab PO DAILY RF: 0 Follow up/Referrals: Jovana Solo MD [Primary Care Provider] - Diet/Activity/Treatments Catheter: 2-way [facility] Reason for rehabilitation: Post-operative therapy and Therapy following stroke Rehab type: Physical therapy, Occupational therapy and Speech therapy Discharge Data Primary Care Provider: Jovana Solo Quality Stroke Contraindication Not Initiating IV-Tpa: Contraindicated Onset of Symptoms Date: 04/09/20 Onset of Symptoms Time: 21:00 Symptom Onset Unknown: No Contraindication Antithromb by Day Two: Contraindicated (Hip arthroplasty today) Rehab Services Assessed: Rehabilitation therapy VTE Deep Vein Thrombosis/Pulmonary Embolism Present on Admission: No
[2020-04-09 23:45] LABS: Reflexed Lactate in 2 Hours Y
--- NOTE | 2020-04-09 23:59 | PC.NURSE ---
Transport is leaving now to transfer pt. to [facility] in [place].
== END 2020-04-10 | disposition short-term general hospital (02) | DRG 521 ==
LOC: ED 19:41 → AC 20:10
PROVIDERS: Internal Medicine; Orthopaedic Surgery Foot and Ankle Surgery; Admitting Provider Nurse Practitioner Family; Emergency Provider Emergency Medicine; Family Provider Family Medicine; PCP Family Medicine; Referring Provider Emergency Medicine; Visit Provider Nurse Practitioner Family
PROC: 0SRS0JZ Replacement of Left Hip Joint, Femoral Surface with Synthetic Substitute, Open Approach (ICD-10-PCS; CPT 27125; principal; 2020-04-09 08:00)
DX: M84.452A Pathological fracture, left femur, initial encounter for fracture (principal); I63.231 Cerebral infarction due to unspecified occlusion or stenosis of right carotid arteries; I48.20 Chronic atrial fibrillation, unspecified; R41.4 Neurologic neglect syndrome; D62 Acute posthemorrhagic anemia; R47.01 Aphasia; G81.94 Hemiplegia, unspecified affecting left nondominant side; M84.434A Pathological fracture, left radius, initial encounter for fracture; I10 Essential (primary) hypertension; K21.9 Gastro-esophageal reflux disease without esophagitis; G47.33 Obstructive sleep apnea (adult) (pediatric); R29.810 Facial weakness; R29.706 NIHSS score 6; W18.30XA Fall on same level, unspecified, initial encounter; Y92.008 Other place in unspecified non-institutional (private) residence as the place of occurrence of the external cause; Z79.01 Long term (current) use of anticoagulants; Z20.828 Contact with and (suspected) exposure to other viral communicable diseases
CPT/HCPCS: 29125; 36415; 70450; 70496; 70498; 71045; 72170; 73110; 73502; 73552; 80048; 80053; 82550; 82553; 82962; 83605; 83735; 84484; 85025; 85379; 85610; 85730; 87635; 94760; 94762; 96374; 96375; 99284; C1776; C9290; J0690; J1100; J2250; J2270; J2310; J2405; J2704; J3010; J7050; Q9967